=== PATIENT | female | born 1955 | race Caucasian/White ===

== ENCOUNTER → 2017-07-31 08:04 | Outpatient (CLI) | payer OTHER, SELFPAY ==
[2017-07-31 10:35] LABS: Hemoglobin A1c 6.7 % (4.2-6.3)
[2017-07-31 10:43] LABS: ALB/GLOB Ratio 0.8 RATIO (0.9-2.4); AST(SGOT) 23 U/L (15-37); Alanine Aminotransfer ALT/SGPT 23 U/L (13-56); Albumin, Serum 3.5 g/dL (3.2-5.0); Alkaline Phosphatase 88 U/L (45-117); Anion Gap 8 (5-15); BUN 24 mg/dL (7-18); BUN/Creat Ratio 22.6 RATIO (10-20); Calcium,Total 8.4 mg/dL (8.5-10.1); Chloride 104 mmol/L (98-107); Cholesterol 227 mg/dL (200); Creatinine, Serum 1.06 mg/dL (0.55-1.02); EST Glomerular Filtration Rate 56 mL/min (>60); Est Glom Filt Rate - Afr Amer 67 mL/min (>60); Globulin 4.2 g/dL (2.2-4.2); Glucose 97 mg/dL (74-106); High Density Lipoprotein 93 mg/dL; Potassium 3.9 mmol/L (3.5-5.1); Protein, Total 7.7 g/dL (6.4-8.2); Sodium Level 139 mmol/L (136-145); Thyroid Stim Hormone (TSH) 2.82 uIU/mL (0.358-3.74); Triglycerides 54 mg/dL; Very Low Density Lipoprotein 11 mg/dL (5-40)
== END ==
PROVIDERS: Family Provider Internal Medicine; PCP Internal Medicine; Visit Provider Internal Medicine Endocrinology, Diabetes & Metabolism
DX: E10.65 Type 1 diabetes mellitus with hyperglycemia (principal); E78.2 Mixed hyperlipidemia; Z79.899 Other long term (current) drug therapy
CPT/HCPCS: 36415; 80053; 80061; 83036; 84443

== ENCOUNTER → 2017-11-02 07:57 | Outpatient (CLI) | payer OTHER, SELFPAY ==
[2017-11-02 10:16] LABS: Anion Gap 11 (5-15); BUN 20 mg/dL (7-18); BUN/Creat Ratio 19.4 RATIO (10-20); Calcium,Total 8.9 mg/dL (8.5-10.1); Chloride 104 mmol/L (98-107); Creatinine, Serum 1.03 mg/dL (0.55-1.02); EST Glomerular Filtration Rate 57 mL/min (>60); Est Glom Filt Rate - Afr Amer 69 mL/min (>60); Glucose 148 mg/dL (74-106); Potassium 3.9 mmol/L (3.5-5.1); Sodium Level 142 mmol/L (136-145)
[2017-11-02 10:27] LABS: Hemoglobin A1c 6.1 % (4.2-6.3)
[2017-11-02 10:30] LABS: Vitamin D,25 Hydroxy 40.2 ng/mL (29.95-100.01)
[2017-11-02 10:47] LABS: Microalbumin,Random Urine 5.1 mg/L (NO RANGE EST.); Microalbumin:Creatinine Ratio 3.8 mg/g CRE (<30 mg/g CRE)
== END ==
PROVIDERS: Family Provider Internal Medicine; PCP Internal Medicine; Visit Provider Internal Medicine Endocrinology, Diabetes & Metabolism
DX: E10.65 Type 1 diabetes mellitus with hyperglycemia (principal); E03.9 Hypothyroidism, unspecified; Z79.899 Other long term (current) drug therapy
CPT/HCPCS: 36415; 80048; 82043; 82306; 82570; 83036

== ENCOUNTER 2017-11-04 08:35 | Emergency (ER) | payer OTHER, SELFPAY ==
[2017-11-04 08:36] VITALS: BP 91/46; PULSE 78; RESP 18; TEMP 36.4; O2SAT 98; BMI 25.0
--- NOTE | 2017-11-04 08:52 | RAD_ITS ---
STUDY: X-RAY - PELVIS AND RIGHT HIP REASON FOR EXAM: Female, 61 years old. Right hip pain. No known injury. Insulin pump in the pelvic region. TECHNIQUE: Radiological exam, hip, unilateral, with pelvis when performed; 2 or 3 views. COMPARISON: None. FINDINGS: There is a non-specific bowel gas pattern. Normal visualized soft tissue structures. There is diffuse demineralization of the osseous structures. Unremarkable bilateral iliac wings, sacroiliac joints and visualized sacrum. Normal bilateral superior and inferior pubic rami. There are degenerative changes of the pubic symphysis with articular narrowing and sclerosis. Normal visualized femoral head. Normal acetabulum. There is mild articular joint space narrowing of the hip. Heterotopic ossification of the soft tissue superior to the right greater trochanter is seen. There is a small focal calcification of the soft tissue adjacent to the left greater trochanter. Electronic battery pack is seen in the upper left hemithorax. Degenerative changes in the visualized lumbosacral spine. RAD/HIP, UNI W/ Pelvis 2-3 Views IMPRESSION: Osteopenia. Bilateral mild degenerative hip arthrosis. No demonstrated fracture or dislocation. Electronically Signed: Sun Maldonado MD at 9:28 EDT Tel , Service support ,
--- NOTE | 2017-11-04 08:57 | ED.VISSUMM ---
- ER Visit Summary Date of Service: 11/04/17 Chief Complaint: Right hip pain History of Present Illness: The patient is a 61 F who presents with right hip pain that began last night. Patient denies any trauma or injury. Patient states the pain began when she stood up from a seated position. Patient states the pain is a constant aching but sharp at times. Patient states pain is worse with movement and weightbearing. Patient admits to some tingling in her right foot but denies any weakness. Patient states the pain radiates down her right leg. Patient denies any back pain. Patient denies any bowel or bladder changes. Patient denies any saddle anesthesia. Physical Examination: Vital signs are stable. Patient is afebrile. Patient is in no acute distress. Musculoskeletal exam reveals tenderness over the posterior lateral aspect of the right hip. There is no bony crepitance or step-off. There is no obvious deformity noted. There is no tenderness over the sciatic notch. There is some pain with internal and external rotation of the right lower extremity. Pedal pulses are equal bilateral. Sensation was intact to light touch in all digits. The remaining physical exam is within normal limits. Test Results: X-ray of the right hip was obtained. There are some degenerative changes noted. There is some heterotopic ossification superior to the greater trochanter. There is no acute fracture noted. Emergency Department Course and Treatment: Patient was instructed to ice and elevate the right hip. Patient states she will take ibuprofen as needed for pain. Patient states she has a walker at home to help with ambulation. Patient was instructed to follow-up with her primary care physician in 5-7 days. Patient understood and was agreeable with the plan. All questions were answered. Disposition: Discharge home Impression: Right hip strain This note was generated with [employer] dictation software. It may contain incorrect words, spelling, and punctuation that were not noted in review of the chart prior to signing ED Disposition - Plan for ED Patient: Disposition: Home or Assisted Living Chief Complaint: Lower Extremity Injury Diagnosis: Strain of right hip Instructions: ED Sprain Hip Referrals: Michelle Morrison MD [Primary Care Provider] -
--- NOTE | 2017-11-04 09:31 | ED.DCSUM_ITS ---
- ER Visit Summary Date of Service: 11/04/17 Chief Complaint: Right hip pain History of Present Illness: The patient is a 61 F who presents with right hip pain that began last night. Patient denies any trauma or injury. Patient states the pain began when she stood up from a seated position. Patient states the pain is a constant aching but sharp at times. Patient states pain is worse with movement and weightbearing. Patient admits to some tingling in her right foot but denies any weakness. Patient states the pain radiates down her right leg. Patient denies any back pain. Patient denies any bowel or bladder changes. Patient denies any saddle anesthesia. Physical Examination: Vital signs are stable. Patient is afebrile. Patient is in no acute distress. Musculoskeletal exam reveals tenderness over the posterior lateral aspect of the right hip. There is no bony crepitance or step- off. There is no obvious deformity noted. There is no tenderness over the sciatic notch. There is some pain with internal and external rotation of the right lower extremity. Pedal pulses are equal bilateral. Sensation was intact to light touch in all digits. The remaining physical exam is within normal limits. Test Results: X-ray of the right hip was obtained. There are some degenerative changes noted. There is some heterotopic ossification superior to the greater trochanter. There is no acute fracture noted. Emergency Department Course and Treatment: Patient was instructed to ice and elevate the right hip. Patient states she will take ibuprofen as needed for pain. Patient states she has a walker at home to help with ambulation. Patient was instructed to follow-up with her primary care physician in 5-7 days. Patient understood and was agreeable with the plan. All questions were answered. Disposition: Discharge home Impression: Right hip strain This note was generated with [employer] dictation software. It may contain incorrect words, spelling, and punctuation that were not noted in review of the chart prior to signing ED Disposition - Plan for ED Patient: Disposition: Home or Assisted Living Chief Complaint: Lower Extremity Injury Diagnosis: Strain of right hip Instructions: ED Sprain Hip Referrals: Michelle Morrison MD [Primary Care Provider] -
[2017-11-04 09:46] VITALS: BP 110/85; PULSE 83; RESP 16; O2SAT 98
== END 2017-11-04 09:50 | disposition home or self-care (01) ==
PROVIDERS: Emergency Provider Emergency Medicine; Family Provider Internal Medicine; PCP Internal Medicine
DX: M25.551 Pain in right hip (principal); E11.9 Type 2 diabetes mellitus without complications; E03.9 Hypothyroidism, unspecified; Z96.41 Presence of insulin pump (external) (internal); Z79.4 Long term (current) use of insulin; Z79.899 Other long term (current) drug therapy
CPT/HCPCS: 73502; 99282

== ENCOUNTER → 2017-12-27 08:48 | Outpatient (CLI) | payer OTHER, SELFPAY ==
[2017-12-27 10:07] LABS: Hematocrit 39.1 % (37-47); Hemoglobin 12.5 g/dl (12.0-15.0); Mean Corpuscular Hgb 29.3 pg (27.0-32.0); Mean Corpuscular Volume 91.6 fL (81-99); Mean Platelet Vol. 10.5 fl (6.2-12.0); Platelet Count 277 K/mm3 (150-450); RBC Distribution Width CV 13.8 % (11.6-14.6); RBC Distribution Width SD 45.5 fl (35.1-43.9); Red Blood Count 4.27 M/mm3 (4.2-5.4); White Blood Count 3.9 K/mm3 (4.4-11.0)
[2017-12-27 10:09] LABS: Scan Indicated on CBC? Y/N NO
[2017-12-27 10:27] LABS: Hemoglobin A1c 6.4 % (4.2-6.3)
[2017-12-27 10:42] LABS: ALB/GLOB Ratio 0.9 RATIO (0.9-2.4); AST(SGOT) 23 U/L (15-37); Alanine Aminotransfer ALT/SGPT 24 U/L (13-56); Albumin, Serum 3.4 g/dL (3.2-5.0); Alkaline Phosphatase 70 U/L (45-117); Anion Gap 8 (5-15); BUN 20 mg/dL (7-18); Calcium,Total 8.5 mg/dL (8.5-10.1); Chloride 100 mmol/L (98-107); EST Glomerular Filtration Rate 59 mL/min (>60); Est Glom Filt Rate - Afr Amer 72 mL/min (>60); Globulin 3.7 g/dL (2.2-4.2); Glucose 137 mg/dL (74-106); Protein, Total 7.1 g/dL (6.4-8.2); Sodium Level 136 mmol/L (136-145); Thyroid Stim Hormone (TSH) 2.74 uIU/mL (0.358-3.74)
== END ==
PROVIDERS: Family Provider Internal Medicine; PCP Internal Medicine; Referring Provider Internal Medicine Endocrinology, Diabetes & Metabolism; Visit Provider Internal Medicine Endocrinology, Diabetes & Metabolism
DX: E03.9 Hypothyroidism, unspecified (principal); E10.65 Type 1 diabetes mellitus with hyperglycemia; Z79.899 Other long term (current) drug therapy
CPT/HCPCS: 36415; 80053; 83036; 84443; 85027

== ENCOUNTER → 2018-07-31 07:00 | Outpatient (CLI) | payer OTHER, SELFPAY ==
[2018-07-31 10:15] LABS: Absolute Lymphocyte Count 1.29 X10^3/ul (0.83-4.51); Absolute Neutrophil Count 1.5 X10^3/uL (2.0-7.7); Basophil# 0.03 X10^3/uL; Basophil% 0.8 % (0-1); Eosinophil# 0.46 X10^3/uL; Hematocrit 41.7 % (37-47); Hemoglobin 13.4 g/dl (12.0-15.0); Lymphocyte # 1.29 X10^3/ul (4.0); Lymphocyte % 33.7 % (19-41); Mean Corp Hgb Conc 32.1 g/gl (32-36); Mean Corpuscular Hgb 29.1 pg (27.0-32.0); Mean Corpuscular Volume 90.7 fL (81-99); Mean Platelet Vol. 11.6 fl (6.2-12.0); Monocyte# 0.54 X10^3/uL; Monocyte% 14.1 % (0-10); Neutrophil # 1.51 X10^3/uL (2.7-7.7); Neutrophil % 39.4 % (47-70); Platelet Count 256 K/mm3 (150-450); RBC Distribution Width CV 14.1 % (11.6-14.6); RBC Distribution Width SD 46.6 fl (35.1-43.9); White Blood Count 3.8 K/mm3 (4.4-11.0)
[2018-07-31 10:22] LABS: POSITIVE COUNT NO; POSITIVE DIFFERENTIAL NO; POSITIVE MORPHOLOGY NO
[2018-07-31 10:41] LABS: ALB/GLOB Ratio 0.9 RATIO (0.9-2.4); AST(SGOT) 29 U/L (15-37); Alanine Aminotransfer ALT/SGPT 26 U/L (13-56); Albumin, Serum 3.6 g/dL (3.2-5.0); Alkaline Phosphatase 82 U/L (45-117); Anion Gap 4 (5-15); BUN 21 mg/dL (7-18); BUN/Creat Ratio 21.3 RATIO (10-20); Calcium,Total 8.7 mg/dL (8.5-10.1); Chloride 107 mmol/L (98-107); Cholesterol 202 mg/dL (200); Creatinine, Serum 0.98 mg/dL (0.55-1.02); EST Glomerular Filtration Rate 60 mL/min (>60); Est Glom Filt Rate - Afr Amer 73 mL/min (>60); Globulin 3.8 g/dL (2.2-4.2); Glucose 60 mg/dL (74-106); High Density Lipoprotein 94 mg/dL; Potassium 4.8 mmol/L (3.5-5.1); Protein, Total 7.4 g/dL (6.4-8.2); Sodium Level 141 mmol/L (136-145); T4 Free Direct 1.24 ng/dL (0.76-1.46); Thyroid Stim Hormone (TSH) 6.02 uIU/mL (0.358-3.74); Triglycerides 42 mg/dL; Very Low Density Lipoprotein 8 mg/dL (5-40)
[2018-07-31 10:50] LABS: Hemoglobin A1c 6.9 % (4.2-6.3)
== END ==
PROVIDERS: Family Provider Internal Medicine; PCP Internal Medicine; Referring Provider Internal Medicine Endocrinology, Diabetes & Metabolism; Visit Provider Internal Medicine Endocrinology, Diabetes & Metabolism
DX: E10.65 Type 1 diabetes mellitus with hyperglycemia (principal); D72.819 Decreased white blood cell count, unspecified
CPT/HCPCS: 36415; 80053; 80061; 83036; 84439; 84443; 85025

== ENCOUNTER → 2018-10-11 | Outpatient (CLI) | payer OTHER, SELFPAY ==
[2018-10-11 09:53] LABS: Absolute Lymphocyte Count 1.05 X10^3/uL (0.83-4.51); Absolute Neutrophil Count 2.4 X10^3/uL (2.0-7.7); Basophil# 0.06 X10^3/uL; Basophil% 1.2 % (0-1); Eosinophil# 0.87 X10^3/uL; Eosinophils% 17.8 % (0-5); Hematocrit 41.2 % (37-47); Hemoglobin 13.3 g/dL (12.0-15.0); Lymphocyte # 1.05 X10^3/ul (4.0); Lymphocyte % 21.5 % (19-41); Mean Corp Hgb Conc 32.3 g/dL (32-36); Mean Corpuscular Hgb 29.6 pg (27.0-32.0); Mean Corpuscular Volume 91.8 fL (81-99); Monocyte% 10.2 % (0-10); NRBC Flagged by Analyzer 0 % (0-5); Neutrophil % 49.1 % (47-70); Platelet Count 277 K/mm3 (150-450); RBC Distribution Width CV 13.8 % (11.6-14.6); RBC Distribution Width SD 47.1 fl (35.1-43.9); Red Blood Count 4.49 M/mm3 (4.2-5.4); White Blood Count 4.9 K/mm3 (4.4-11.0)
[2018-10-11 10:14] LABS: Microalbumin,Random Urine < 5.0 mg/L (NO RANGE EST.); Protein, Urine (Random) 8.8 mg/dL (<11.9); Protein:Creat Ratio 76 mg/g CRE (0-200)
[2018-10-11 10:21] LABS: Hemoglobin A1c 6.7 % (4.2-6.3)
[2018-10-11 10:22] LABS: Vitamin D,25 Hydroxy 44.6 ng/mL (29.95-100.01)
[2018-10-11 10:37] LABS: Anion Gap 7 (5-15); BUN 25 mg/dL (7-18); BUN/Creat Ratio 24.3 RATIO (10-20); Calcium,Total 8.7 mg/dL (8.5-10.1); Chloride 105 mmol/L (98-107); Creatinine, Serum 1.03 mg/dL (0.55-1.02); EST Glomerular Filtration Rate 57 mL/min (>60); Est Glom Filt Rate - Afr Amer 69 mL/min (>60); Glucose 109 mg/dL (74-106); Potassium 4.3 mmol/L (3.5-5.1); Sodium Level 139 mmol/L (136-145); T4 Free Direct 1.39 ng/dL (0.76-1.46); Thyroid Stim Hormone (TSH) 2.61 uIU/mL (0.358-3.74)
== END | disposition home or self-care (01) ==
LOC: MTLAB 08:12
PROVIDERS: Family Provider Internal Medicine; PCP Internal Medicine; Referring Provider Internal Medicine Endocrinology, Diabetes & Metabolism; Visit Provider Internal Medicine Endocrinology, Diabetes & Metabolism
DX: E03.9 Hypothyroidism, unspecified (principal); E10.65 Type 1 diabetes mellitus with hyperglycemia; E55.9 Vitamin D deficiency, unspecified; Z79.899 Other long term (current) drug therapy
CPT/HCPCS: 36415; 80048; 82043; 82306; 82570; 83036; 84156; 84439; 84443; 85025

== ENCOUNTER → 2018-10-17 | Outpatient (CLI) | payer OTHER, SELFPAY ==
[2018-10-17 10:25] LABS: Erythrocyte Sedimentation Rate 6 mm/hr (0-30)
[2018-10-17 10:35] LABS: CRP < 2.90 mg/L (0.0-3.0); Rheumatoid Factor < 10.0 IU/mL (<15)
[2018-10-18 15:11] LABS: ANTINUCLEAR ANTIBODIES DIRECT Positive (Negative)
[2018-10-20 17:09] LABS: CCP IgG Antibodies 9 units (0-19)
== END | disposition home or self-care (01) ==
LOC: MTLAB 07:33
PROVIDERS: Family Provider Family Medicine; PCP Family Medicine; Referring Provider Family Medicine; Visit Provider Family Medicine
DX: M13.0 Polyarthritis, unspecified (principal)
CPT/HCPCS: 36415; 85652; 86038; 86140; 86200; 86431

== ENCOUNTER → 2018-12-13 | Outpatient (CLI) | payer MEDICARE, SELFPAY ==
[2018-12-13 10:35] LABS: Glucose 111 mg/dL (74-106)
[2018-12-15 10:32] LABS: C-Peptide < 0.1 ng/mL (1.1-4.4)
== END | disposition home or self-care (01) ==
LOC: MTLAB 07:27
PROVIDERS: Family Provider Family Medicine; PCP Family Medicine; Referring Provider Internal Medicine Endocrinology, Diabetes & Metabolism; Visit Provider Internal Medicine Endocrinology, Diabetes & Metabolism
DX: E10.65 Type 1 diabetes mellitus with hyperglycemia (principal)
CPT/HCPCS: 36415; 82947; 84681

== ENCOUNTER → 2018-12-20 | Outpatient (CLI) | payer MEDICARE, SELFPAY ==
[2018-12-20 10:03] LABS: Hematocrit 41.5 % (37-47); Hemoglobin 13.3 g/dL (12.0-15.0); Mean Corpuscular Volume 93.7 fL (81-99); Mean Platelet Vol. 11.3 fl (6.2-12.0); Platelet Count 277 K/mm3 (150-450); RBC Distribution Width CV 13.7 % (11.6-14.6); RBC Distribution Width SD 46.5 fl (35.1-43.9); Red Blood Count 4.43 M/mm3 (4.2-5.4); White Blood Count 5.7 K/mm3 (4.4-11.0)
[2018-12-20 10:11] LABS: ALB/GLOB Ratio 0.9 RATIO (0.9-2.4); AST(SGOT) 26 U/L (15-37); Alanine Aminotransfer ALT/SGPT 25 U/L (13-56); Albumin, Serum 3.5 g/dL (3.2-5.0); Alkaline Phosphatase 83 U/L (45-117); Anion Gap 9 (5-15); BUN 29 mg/dL (7-18); BUN/Creat Ratio 29.5 RATIO (10-20); Calcium,Total 8.6 mg/dL (8.5-10.1); Chloride 105 mmol/L (98-107); Creatinine, Serum 0.98 mg/dL (0.55-1.02); EST Glomerular Filtration Rate 60 mL/min (>60); Est Glom Filt Rate - Afr Amer 73 mL/min (>60); Globulin 3.8 g/dL (2.2-4.2); Glucose 116 mg/dL (74-106); Potassium 4.4 mmol/L (3.5-5.1); Protein, Total 7.3 g/dL (6.4-8.2); Sodium Level 141 mmol/L (136-145)
[2018-12-20 10:20] LABS: Hemoglobin A1c 6.2 % (4.2-6.3)
== END | disposition home or self-care (01) ==
LOC: MTLAB 08:18
PROVIDERS: Family Provider Family Medicine; PCP Family Medicine; Referring Provider Internal Medicine Endocrinology, Diabetes & Metabolism; Visit Provider Internal Medicine Endocrinology, Diabetes & Metabolism
DX: E78.2 Mixed hyperlipidemia (principal); E11.65 Type 2 diabetes mellitus with hyperglycemia; I10 Essential (primary) hypertension; D72.819 Decreased white blood cell count, unspecified; Z79.899 Other long term (current) drug therapy
CPT/HCPCS: 36415; 80053; 83036; 85027

== ENCOUNTER → 2019-08-07 | Outpatient (CLI) | payer MEDICARE, OTHER, SELFPAY ==
[2019-08-07 10:08] LABS: Hemoglobin A1c 6.9 % (4.2-6.3)
[2019-08-07 10:16] LABS: ALB/GLOB Ratio 0.9 RATIO (0.9-2.4); AST(SGOT) 23 U/L (15-37); Alanine Aminotransfer ALT/SGPT 26 U/L (13-56); Albumin, Serum 3.7 g/dL (3.2-5.0); Alkaline Phosphatase 85 U/L (45-117); Anion Gap 9 (5-15); BUN 24 mg/dL (7-18); BUN/Creat Ratio 24.7 RATIO (10-20); Chloride 104 mmol/L (98-107); Cholesterol 238 mg/dL (200); Creatinine, Serum 0.97 mg/dL (0.55-1.02); EST Glomerular Filtration Rate 61 mL/min (>60); Est Glom Filt Rate - Afr Amer 74 mL/min (>60); Globulin 4.1 g/dL (2.2-4.2); Glucose 92 mg/dL (74-106); High Density Lipoprotein 112 mg/dL; Potassium 4.2 mmol/L (3.5-5.1); Protein, Total 7.8 g/dL (6.4-8.2); Sodium Level 139 mmol/L (136-145); Thyroid Stim Hormone (TSH) 2.97 uIU/mL (0.358-3.74); Triglycerides 39 mg/dL; Very Low Density Lipoprotein 8 mg/dL (5-40)
== END | disposition home or self-care (01) ==
LOC: MTLAB 07:14
PROVIDERS: PCP Family Medicine; Referring Provider Internal Medicine Endocrinology, Diabetes & Metabolism; Visit Provider Internal Medicine Endocrinology, Diabetes & Metabolism
DX: E10.65 Type 1 diabetes mellitus with hyperglycemia (principal); E10.42 Type 1 diabetes mellitus with diabetic polyneuropathy; Z79.899 Other long term (current) drug therapy
CPT/HCPCS: 36415; 80053; 80061; 83036; 84443

== ENCOUNTER → 2019-11-06 | Outpatient (CLI) | payer MEDICARE, OTHER, SELFPAY ==
[2019-09-07 08:22] VITALS: BMI 25.0
[2019-11-06 10:46] LABS: ALB/GLOB Ratio 0.9 RATIO (0.9-2.4); AST(SGOT) 23 U/L (15-37); Alanine Aminotransfer ALT/SGPT 24 U/L (13-56); Albumin, Serum 3.8 g/dL (3.2-5.0); Alkaline Phosphatase 91 U/L (45-117); Anion Gap 4 (5-15); BUN 22 mg/dL (7-18); Calcium,Total 9.4 mg/dL (8.5-10.1); Chloride 105 mmol/L (98-107); Creatinine, Serum 1.05 mg/dL (0.55-1.02); EST Glomerular Filtration Rate 56 mL/min (>60); Est Glom Filt Rate - Afr Amer 68 mL/min (>60); Globulin 4.1 g/dL (2.2-4.2); Glucose 129 mg/dL (74-106); Protein, Total 7.9 g/dL (6.4-8.2); Sodium Level 138 mmol/L (136-145)
[2019-11-06 10:57] LABS: Vitamin B12 1525 pg/mL (211-911)
[2019-11-06 10:58] LABS: Hemoglobin A1c 6.1 % (3.8-5.6)
[2019-11-06 12:37] LABS: Microalbumin,Random Urine < 5.0 mg/L (NO RANGE EST.)
== END | disposition home or self-care (01) ==
LOC: MTLAB 07:53
PROVIDERS: PCP Family Medicine; Referring Provider Internal Medicine Endocrinology, Diabetes & Metabolism; Visit Provider Internal Medicine Endocrinology, Diabetes & Metabolism
DX: E10.65 Type 1 diabetes mellitus with hyperglycemia (principal); E10.42 Type 1 diabetes mellitus with diabetic polyneuropathy; Z79.899 Other long term (current) drug therapy
CPT/HCPCS: 36415; 80053; 82043; 82570; 82607; 83036

== ENCOUNTER → 2019-12-09 | Outpatient (CLI) | payer MEDICARE, OTHER, SELFPAY ==
[2019-09-07 08:22] VITALS: BMI 25.0
--- NOTE | 2019-12-09 08:44 | BD_ITS ---
STUDY: DUAL ENERGY X-RAY ABSORPTIOMETRY / DXA REASON FOR EXAM: Female, 63 years old. [employer] -- TYPE 1 DIABETIC- ON MEDS -- TAKES THYROID MEDICATION -- TAKES MULTIVITAMIN -- DOES MODERATE AMOUNT OF EXERCISE -- HX OF LEFT LEG FX -- NO BRITTNEY TECHNIQUE: Bone Mineral Density (BMD) measurements of lumbar spine and bilateral hips were obtained. COMPARISON: None. FINDINGS: Lumbar Spine (L1-L4): g/cm2 (0.793) / T-score (-3.2) / Z-score (-1.6) Findings are suggestive of osteoporosis with a high fracture risk. Left Femur Total: g/cm2 (0.639) / T-score (-2.9) / Z-score (-1.7) Left Femoral Neck: g/cm2 (0.653) / T-score (-2.8) / Z-score (-1.3) Right Femur Total: g/cm2 (0.667) / T-score (-2.7) / Z-score (-1.5) Right Femoral Neck: g/cm2 (0.698) / T-score (-2.4) / Z-score (-1.0) BD/Dexa Bone Density Study IMPRESSION: The patient is considered osteoporotic as outlined below according to World Samuel Organization (WHO) criteria with a high fracture risk. Reference Information: The T-score is the number of standard deviations above or below the standard which is normal for young adults at their peak bone mineral density. The World Health Organization (WHO) interprets the T-scores as follows: Above -1 Normal bone density Between -1 and -2.5 Osteopenia Equal to / or below -2.5 Osteoporosis As a practical clinical guideline, osteopenia may be graded as follows: Mild -1 through -1.5 Moderate -1.6 through -2.0 Severe -2.1 through -2.4 The Z-score is the number of standard deviations above or below age-matched controls. A Z-score of less than -1.5 would be considered abnormal. References: 1. NIH Osteoporosis and Related Bone Diseases http://www.osteo.org 2. International Society for Clinical Densitometry http://www.iscd.org 3. National Osteoporosis Foundation http://www.nof.org Electronically Signed: Raza Stephens, at 11:07 EDT , Service support ,
== END | disposition home or self-care (01) ==
LOC: OPBD 08:34
PROVIDERS: PCP Family Medicine; Referring Provider Family Medicine; Visit Provider Family Medicine
DX: Z78.0 Asymptomatic menopausal state (principal); E10.9 Type 1 diabetes mellitus without complications
CPT/HCPCS: 77080

== ENCOUNTER → 2019-12-23 | Outpatient (CLI) | payer MEDICARE, OTHER, SELFPAY ==
[2019-09-07 08:22] VITALS: BMI 25.0
[2019-12-23 16:06] LABS: Vitamin D,25 Hydroxy 52.8 ng/mL
[2019-12-24 10:04] LABS: PTHIN 69.1 pg/mL (18.4-80.1)
== END | disposition home or self-care (01) ==
PROVIDERS: PCP Family Medicine; Referring Provider Internal Medicine Endocrinology, Diabetes & Metabolism; Visit Provider Internal Medicine Endocrinology, Diabetes & Metabolism
DX: M81.0 Age-related osteoporosis without current pathological fracture (principal)
CPT/HCPCS: 36415; 82306; 83970

== ENCOUNTER → 2019-12-26 | Outpatient (CLI) | payer MEDICARE, OTHER, SELFPAY ==
[2019-09-07 08:22] VITALS: BMI 25.0
[2019-12-28 07:27] LABS: C-Peptide < 0.1 ng/mL (1.1-4.4)
== END | disposition home or self-care (01) ==
LOC: MTLAB 08:44
PROVIDERS: PCP Family Medicine; Referring Provider Internal Medicine Endocrinology, Diabetes & Metabolism; Visit Provider Internal Medicine Endocrinology, Diabetes & Metabolism
DX: M81.0 Age-related osteoporosis without current pathological fracture (principal)
CPT/HCPCS: 36415; 84681

== ENCOUNTER → 2020-08-06 08:09 | Outpatient (CLI) | payer MEDICARE, OTHER, SELFPAY ==
[2019-09-07 08:22] VITALS: BMI 25.0
[2020-08-06 10:48] LABS: Hemoglobin A1c 5.9 % (3.8-5.6)
[2020-08-06 10:56] LABS: ALB/GLOB Ratio 0.9 RATIO (0.9-2.4); AST(SGOT) 26 U/L (15-37); Alanine Aminotransfer ALT/SGPT 26 U/L (13-56); Albumin, Serum 3.7 g/dL (3.2-5.0); Alkaline Phosphatase 53 U/L (45-117); Anion Gap 6 (5-15); BUN 23 mg/dL (7-18); BUN/Creat Ratio 23.7 RATIO (10-20); Calcium,Total 8.8 mg/dL (8.5-10.1); Chloride 103 mmol/L (98-107); Cholesterol 230 mg/dL (200); Creatinine, Serum 0.97 mg/dL (0.55-1.02); EST Glomerular Filtration Rate 61 mL/min (>60); Est Glom Filt Rate - Afr Amer 74 mL/min (>60); Globulin 3.9 g/dL (2.2-4.2); Glucose 129 mg/dL (74-106); High Density Lipoprotein 107 mg/dL; Protein, Total 7.6 g/dL (6.4-8.2); Sodium Level 138 mmol/L (136-145); T4 Free Direct 1.42 ng/dL (0.76-1.46); Triglycerides 40 mg/dL; Very Low Density Lipoprotein 8 mg/dL (5-40)
[2020-08-06 11:38] LABS: 24HR UR TOTAL VOLUME 3000 ml; Calcium Urine pH Range 2
[2020-08-06 13:10] LABS: PTHIN 61.9 pg/mL (18.4-80.1)
[2020-08-07 08:04] LABS: Vitamin B12 752 pg/mL (211-911); Vitamin D,25 Hydroxy 47.3 ng/mL
== END ==
PROVIDERS: PCP Family Medicine; Referring Provider Internal Medicine Endocrinology, Diabetes & Metabolism; Visit Provider Internal Medicine Endocrinology, Diabetes & Metabolism
DX: E10.65 Type 1 diabetes mellitus with hyperglycemia (principal); M81.0 Age-related osteoporosis without current pathological fracture; Z79.899 Other long term (current) drug therapy
CPT/HCPCS: 36415; 80053; 80061; 82306; 82340; 82575; 82607; 83036; 83970; 84439; 84443

== ENCOUNTER → 2020-08-09 09:01 | Outpatient (CLI) | payer MEDICARE, OTHER, SELFPAY ==
[2019-09-07 08:22] VITALS: BMI 25.0
[2020-08-09 10:43] LABS: (24 HR) Urine Calcium 246.5 mg/24 HR (42.0-353.0); 24HR UR TOTAL VOLUME 2900 ml; Calcium Urine pH Range 2; Urine Calcium (Random) 8.5 (Not Estab.)
[2020-08-09 10:44] LABS: 24HR. Urine Creatinine 1.08 g/24 HR (0.70-1.90)
== END ==
PROVIDERS: PCP Family Medicine; Referring Provider Internal Medicine Endocrinology, Diabetes & Metabolism; Visit Provider Internal Medicine Endocrinology, Diabetes & Metabolism
DX: E10.65 Type 1 diabetes mellitus with hyperglycemia (principal); M81.0 Age-related osteoporosis without current pathological fracture; Z79.899 Other long term (current) drug therapy
CPT/HCPCS: 81050; 82340; 82570

== ENCOUNTER → 2020-11-11 07:50 | Outpatient (CLI) | payer MEDICARE, OTHER, SELFPAY ==
[2020-11-11 11:16] LABS: Albumin, Serum 3.4 g/dL (3.2-5.0); BUN 20 mg/dL (7-18); BUN/Creat Ratio 21.4 RATIO (10-20); Calcium,Total 8.6 mg/dL (8.5-10.1); Chloride 104 mmol/L (98-107); Creatinine, Serum 0.94 mg/dL (0.55-1.02); EST Glomerular Filtration Rate 64 mL/min (>60); Est Glom Filt Rate - Afr Amer 77 mL/min (>60); Glucose 137 mg/dL (74-106); Phosphorus 3.2 mg/dL (2.5-4.9); Potassium 3.9 mmol/L (3.5-5.1); Sodium Level 138 mmol/L (136-145)
[2020-11-11 11:21] LABS: PTHIN 67.8 pg/mL (18.4-80.1)
[2020-11-11 11:29] LABS: Microalbumin,Random Urine < 5.0 mg/L (NO RANGE EST.)
== END ==
PROVIDERS: PCP Family Medicine; Referring Provider Internal Medicine Endocrinology, Diabetes & Metabolism; Visit Provider Internal Medicine Endocrinology, Diabetes & Metabolism
DX: E55.9 Vitamin D deficiency, unspecified (principal); M81.0 Age-related osteoporosis without current pathological fracture; E10.65 Type 1 diabetes mellitus with hyperglycemia
CPT/HCPCS: 36415; 80069; 82043; 82570; 83970

== ENCOUNTER → 2021-08-03 | Outpatient (CLI) | payer MEDICARE, OTHER, SELFPAY ==
[2021-08-03 10:23] LABS: PTHIN 61.9 pg/mL (18.4-80.1)
[2021-08-03 10:26] LABS: Vitamin D,25 Hydroxy 51.6 ng/mL
[2021-08-03 10:35] LABS: AST(SGOT) 27 U/L (15-37); Alanine Aminotransfer ALT/SGPT 30 U/L (13-56); Albumin, Serum 3.6 g/dL (3.2-5.0); Alkaline Phosphatase 42 U/L (45-117); Anion Gap 8 (5-15); BUN 20 mg/dL (7-18); BUN/Creat Ratio 22.7 RATIO (10-20); Calcium,Total 8.6 mg/dL (8.5-10.1); Chloride 103 mmol/L (98-107); Creatinine, Serum 0.88 mg/dL (0.55-1.02); EST Glomerular Filtration Rate 68 mL/min (>60); Est Glom Filt Rate - Afr Amer 82 mL/min (>60); Globulin 3.5 g/dL (2.2-4.2); Glucose 177 mg/dL (74-106); Protein, Total 7.1 g/dL (6.4-8.2); Sodium Level 133 mmol/L (136-145)
[2021-08-03 12:27] LABS: (24 HR) Urine Calcium 153.4 mg/24 HR (42.0-353.0); 24HR UR TOTAL VOLUME 2600 ml; Calcium Urine pH Range 2; Urine Calcium (Random) 5.9 (Not Estab.)
== END | disposition home or self-care (01) ==
PROVIDERS: PCP Family Medicine; Referring Provider Internal Medicine Endocrinology, Diabetes & Metabolism; Visit Provider Internal Medicine Endocrinology, Diabetes & Metabolism
DX: E10.65 Type 1 diabetes mellitus with hyperglycemia (principal); M81.0 Age-related osteoporosis without current pathological fracture; Z79.899 Other long term (current) drug therapy
CPT/HCPCS: 36415; 80053; 81050; 82306; 82340; 82570; 83036; 83970

== ENCOUNTER → 2021-10-21 | Outpatient (CLI) | payer MEDICARE, OTHER, SELFPAY ==
--- NOTE | 2021-10-21 08:52 | RAD_ITS ---
STUDY: X-RAY - LEFT KNEE REASON FOR EXAM: Left knee pain. TECHNIQUE: 4 view(s) of the knee. COMPARISON: None. FINDINGS: Normal visualized distal femur. Normal visualized proximal tibia and fibula. Normal proximal tibiofibular articulation. There is joint space loss of the medial femorotibial compartment. Normal lateral femorotibial compartment. There is mild joint space narrowing of the lateral aspect of the patellofemoral articulation. The soft tissue structures are unremarkable. RAD/Knee 4 or More Views IMPRESSION: Arthrosis of the medial femorotibial and patellofemoral compartments. Electronically Signed: Vahe Fuentes MD at 13:16 EDT ,
== END | disposition home or self-care (01) ==
LOC: MTRAD 08:51
PROVIDERS: PCP Family Medicine; Referring Provider Family Medicine; Visit Provider Family Medicine
DX: M25.562 Pain in left knee (principal)
CPT/HCPCS: 73564

== ENCOUNTER → 2021-11-03 | Outpatient (CLI) | payer MEDICARE, OTHER, SELFPAY ==
[2021-11-03 10:28] LABS: Vitamin B12 545 pg/mL (211-911)
[2021-11-03 10:31] LABS: Hemoglobin A1c 6.5 % (3.8-5.6)
[2021-11-03 10:34] LABS: Anion Gap 5 (5-15); BUN 13 mg/dL (7-18); BUN/Creat Ratio 12.5 RATIO (10-20); Calcium,Total 8.6 mg/dL (8.5-10.1); Chloride 102 mmol/L (98-107); Cholesterol 221 mg/dL (200); Creatinine, Serum 1.04 mg/dL (0.55-1.02); EST Glomerular Filtration Rate 56 mL/min (>60); Est Glom Filt Rate - Afr Amer 68 mL/min (>60); Glucose 173 mg/dL (74-106); High Density Lipoprotein 79 mg/dL; Potassium 4.3 mmol/L (3.5-5.1); Sodium Level 135 mmol/L (136-145); T4 Free Direct 1.42 ng/dL (0.76-1.46); Thyroid Stim Hormone (TSH) 1.43 uIU/mL (0.358-3.74); Triglycerides 80 mg/dL; Very Low Density Lipoprotein 16 mg/dL (5-40)
[2021-11-03 10:41] LABS: Microalbumin,Random Urine < 5.0 mg/L (NO RANGE EST.)
== END | disposition home or self-care (01) ==
LOC: MTLAB 07:57
PROVIDERS: PCP Family Medicine; Referring Provider Internal Medicine Endocrinology, Diabetes & Metabolism; Visit Provider Internal Medicine Endocrinology, Diabetes & Metabolism
DX: E10.65 Type 1 diabetes mellitus with hyperglycemia (principal); E03.9 Hypothyroidism, unspecified; E55.9 Vitamin D deficiency, unspecified; M81.0 Age-related osteoporosis without current pathological fracture; Z79.899 Other long term (current) drug therapy
CPT/HCPCS: 80048; 80061; 82043; 82570; 82607; 83036; 84439; 84443

== ENCOUNTER → 2021-12-13 | Outpatient (CLI) | payer MEDICARE, OTHER, SELFPAY ==
--- NOTE | 2021-12-13 08:20 | BD_ITS ---
STUDY: DUAL ENERGY X-RAY ABSORPTIOMETRY / DXA REASON FOR EXAM: Female, 66 years old. M810. The patient is postmenopausal. TECHNIQUE: Bone Mineral Density (BMD) measurements of lumbar spine and bilateral hips were obtained. COMPARISON: Comparison is made with prior study 12/09/2019. FINDINGS: Lumbar Spine (L1-L4): g/cm2 (0.752) / T-score (-2.7) / Z-score (-0.7) Findings are suggestive of osteoporosis with a high fracture risk. Left Femur Total: g/cm2 (0.669) / T-score (-2.2) / Z-score (-0.9) Left Femoral Neck: g/cm2 (0.577) / T-score (-2.4) / Z-score (-0.8) Right Femur Total: g/cm2 (0.703) / T-score (-2.0) / Z-score (-0.6) Right Femoral Neck: g/cm2 (0.601) / T-score (-2.2) / Z-score (-0.6) The T-Scores on the most recent prior examination were: Lumbar Spine (L1-L4): There has been improvement of bone density since the previous examination. Left Femur Total: which represents an improvement of 14.6%. Right Femur Total: which represents an improvement of 15.1%. BD/Dexa Bone Density Study IMPRESSION: The patient is considered osteoporotic as outlined below according to World Samuel Organization (WHO) criteria with a high fracture risk. There has been improvement of bone density since the previous examination. Reference Information: The T-score is the number of standard deviations above or below the standard which is normal for young adults at their peak bone mineral density. The World Health Organization (WHO) interprets the T-scores as follows: Above -1 Normal bone density Between -1 and -2.5 Osteopenia Equal to / or below -2.5 Osteoporosis As a practical clinical guideline, osteopenia may be graded as follows: Mild -1 through -1.5 Moderate -1.6 through -2.0 Severe -2.1 through -2.4 The Z-score is the number of standard deviations above or below age-matched controls. A Z-score of less than -1.5 would be considered abnormal. References: 1. NIH Osteoporosis and Related Bone Diseases www osteo.org 2. International Society for Clinical Densitometry www iscd.org 3. National Osteoporosis Foundation www nof.org Electronically Signed: Raza Stephens MD at 12:43 EDT ,
== END | disposition home or self-care (01) ==
LOC: OPBD 08:07
PROVIDERS: PCP Family Medicine; Visit Provider Internal Medicine Endocrinology, Diabetes & Metabolism
DX: M81.0 Age-related osteoporosis without current pathological fracture (principal)
CPT/HCPCS: 77080

== ENCOUNTER → 2022-07-28 | Outpatient (CLI) | payer MEDICARE, OTHER, SELFPAY ==
[2022-07-28 10:40] LABS: Vitamin B12 1486 pg/mL (211-911); Vitamin D,25 Hydroxy 55.6 ng/mL
[2022-07-28 10:42] LABS: Hemoglobin A1c 5.9 % (3.8-5.6)
[2022-07-28 10:43] LABS: ALB/GLOB Ratio 0.9 RATIO (0.9-2.4); AST(SGOT) 28 U/L (15-37); Alanine Aminotransfer ALT/SGPT 30 U/L (13-56); Albumin, Serum 3.8 g/dL (3.2-5.0); Alkaline Phosphatase 52 U/L (45-117); Anion Gap 9 (5-15); BUN 21 mg/dL (7-18); BUN/Creat Ratio 22.2 RATIO (10-20); Calcium,Total 8.9 mg/dL (8.5-10.1); Chloride 102 mmol/L (98-107); Creatinine, Serum 0.94 mg/dL (0.55-1.02); EST Glomerular Filtration Rate 62 mL/min (>60); Est Glom Filt Rate - Afr Amer 76 mL/min (>60); Globulin 4.1 g/dL (2.2-4.2); Glucose 107 mg/dL (74-106); Potassium 3.7 mmol/L (3.5-5.1); Protein, Total 7.9 g/dL (6.4-8.2); Sodium Level 138 mmol/L (136-145); T4 Free Direct 1.49 ng/dL (0.76-1.46); Thyroid Stim Hormone (TSH) 0.88 uIU/mL (0.358-3.74)
[2022-07-28 10:53] LABS: PTHIN 64.8 pg/mL (18.4-80.1)
== END | disposition home or self-care (01) ==
LOC: MTLAB 07:01
PROVIDERS: PCP Family Medicine; Referring Provider Internal Medicine Endocrinology, Diabetes & Metabolism; Visit Provider Internal Medicine Endocrinology, Diabetes & Metabolism
DX: E10.65 Type 1 diabetes mellitus with hyperglycemia (principal); E03.9 Hypothyroidism, unspecified; E55.9 Vitamin D deficiency, unspecified; Z79.899 Other long term (current) drug therapy
CPT/HCPCS: 36415; 80053; 82306; 82607; 83036; 83970; 84439; 84443; 84681

== ENCOUNTER → 2022-10-04 | Outpatient (CLI) | payer MEDICARE, OTHER, SELFPAY ==
[2022-10-04 10:26] LABS: Glucose 117 mg/dL (74-106)
[2022-10-05 12:09] LABS: C-Peptide < 0.1 ng/mL (1.1-4.4)
== END | disposition home or self-care (01) ==
PROVIDERS: PCP Family Medicine; Referring Provider Internal Medicine Endocrinology, Diabetes & Metabolism; Visit Provider Internal Medicine Endocrinology, Diabetes & Metabolism
DX: E10.65 Type 1 diabetes mellitus with hyperglycemia (principal)
CPT/HCPCS: 36415; 82947; 84681

== ENCOUNTER → 2022-10-26 | Outpatient (CLI) | payer MEDICARE, OTHER, SELFPAY ==
[2022-10-26 10:24] LABS: Microalbumin,Random Urine 6.6 mg/L (NO RANGE EST.); Microalbumin:Creatinine Ratio 6.6 mg/g CRE (<30 mg/g CRE)
[2022-10-26 10:28] LABS: PTHIN 69.9 pg/mL (18.4-80.1)
[2022-10-26 10:30] LABS: Vitamin D,25 Hydroxy 47.5 ng/mL
[2022-10-26 10:41] LABS: Hemoglobin A1c 6.1 % (3.8-5.6)
[2022-10-26 10:55] LABS: Anion Gap 5 (5-15); BUN 17 mg/dL (7-18); BUN/Creat Ratio 19.3 RATIO (10-20); Calcium,Total 8.7 mg/dL (8.5-10.1); Chloride 106 mmol/L (98-107); Cholesterol 208 mg/dL (200); Creatinine, Serum 0.88 mg/dL (0.55-1.02); EST Glomerular Filtration Rate 68 mL/min (>60); Est Glom Filt Rate - Afr Amer 82 mL/min (>60); Glucose 103 mg/dL (74-106); High Density Lipoprotein 97 mg/dL; Potassium 4.1 mmol/L (3.5-5.1); Sodium Level 140 mmol/L (136-145); Thyroid Stim Hormone (TSH) 2.26 uIU/mL (0.358-3.74); Triglycerides 57 mg/dL; Very Low Density Lipoprotein 11 mg/dL (5-40)
== END | disposition home or self-care (01) ==
LOC: MTLAB 07:16
PROVIDERS: PCP Family Medicine; Visit Provider Internal Medicine Endocrinology, Diabetes & Metabolism
DX: E10.65 Type 1 diabetes mellitus with hyperglycemia (principal); E55.9 Vitamin D deficiency, unspecified
CPT/HCPCS: 36415; 80048; 80061; 82043; 82306; 82570; 83036; 83970; 84443

== ENCOUNTER → 2023-08-21 | Outpatient (CLI) | payer MEDICARE, OTHER, SELFPAY ==
[2023-08-21 10:44] LABS: Hemoglobin A1c 5.8 % (3.8-5.6)
[2023-08-21 10:54] LABS: ALB/GLOB Ratio 0.8 RATIO (0.9-2.4); AST(SGOT) 25 U/L (15-37); Alanine Aminotransfer ALT/SGPT 21 U/L (13-56); Albumin, Serum 3.2 g/dL (3.2-5.0); Alkaline Phosphatase 51 U/L (45-117); Anion Gap 8 (5-15); BUN 25 mg/dL (7-18); BUN/Creat Ratio 24.5 RATIO (10-20); Chloride 103 mmol/L (98-107); Creatinine, Serum 1.02 mg/dL (0.55-1.02); EST Glomerular Filtration Rate 57 mL/min (>60); Est Glom Filt Rate - Afr Amer 69 mL/min (>60); Globulin 3.9 g/dL (2.2-4.2); Glucose 113 mg/dL (74-106); Magnesium 2.4 mg/dL (1.6-2.6); Potassium 4.3 mmol/L (3.5-5.1); Protein, Total 7.1 g/dL (6.4-8.2); Sodium Level 137 mmol/L (136-145); Thyroid Stim Hormone (TSH) 1.79 uIU/mL (0.358-3.74)
[2023-08-21 12:02] LABS: PTHIN 48.4 pg/mL (18.4-80.1)
[2023-08-21 12:23] LABS: Vitamin D,25 Hydroxy 78.7 ng/mL
== END | disposition home or self-care (01) ==
LOC: MTLAB 07:19
PROVIDERS: PCP Family Medicine; Referring Provider Internal Medicine Endocrinology, Diabetes & Metabolism; Visit Provider Internal Medicine Endocrinology, Diabetes & Metabolism
DX: E10.65 Type 1 diabetes mellitus with hyperglycemia (principal); E03.9 Hypothyroidism, unspecified; M81.0 Age-related osteoporosis without current pathological fracture; Z79.899 Other long term (current) drug therapy
CPT/HCPCS: 36415; 80053; 82306; 83036; 83735; 83970; 84443

== ENCOUNTER → 2023-12-25 | Outpatient (CLI) | payer MEDICARE, OTHER, SELFPAY ==
--- NOTE | 2023-12-25 08:29 | BD_ITS ---
STUDY: DUAL ENERGY X-RAY ABSORPTIOMETRY / DXA REASON FOR EXAM: Female, 68 years old. M810 TECHNIQUE: Bone Mineral Density (BMD) measurements of lumbar spine and bilateral hips as well as a left forearm were obtained. COMPARISON: Comparison is made with prior study December 13, 2021. FINDINGS: Lumbar Spine (L1-L4): g/cm2 (0.751) / T-score (-2.4) / Z-score (-0.4) Findings are suggestive of osteopenia with a high fracture risk. Left Femur Total: g/cm2 (0.704) / T-score (-2.0) / Z-score (-0.5) Left Femoral Neck: g/cm2 (0.590) / T-score (-2.3) / Z-score (-0.5) Right Femur Total: g/cm2 (0.710) / T-score (-1.9) / Z-score (-0.4) Right Femoral Neck: g/cm2 (0.599) / T-score (-2.3) / Z-score (-0.5) Left Forearm: g/cm2 (0.486) / T-score (-1.7) / Z-score (0.3) The T-Scores on the most recent prior examination were: Lumbar Spine (L1-L4): There has been improvement of bone density since the previous examination. Left Femur Total: which represents an improvement of 5.2%. Right Femur Total: which represents an improvement of 0.9%. BD/Dexa Bone Density Study IMPRESSION: The patient is considered osteopenic as outlined below according to World Samuel Organization (WHO) criteria with a high fracture risk. There has been improvement of bone density since the previous examination. Reference Information: The T-score is the number of standard deviations above or below the standard which is normal for young adults at their peak bone mineral density. The World Health Organization (WHO) interprets the T-scores as follows: Above -1 Normal bone density Between -1 and -2.5 Osteopenia Equal to / or below -2.5 Osteoporosis As a practical clinical guideline, osteopenia may be graded as follows: Mild -1 through -1.5 Moderate -1.6 through -2.0 Severe -2.1 through -2.4 The Z-score is the number of standard deviations above or below age-matched controls. A Z-score of less than -1.5 would be considered abnormal. References: 1. NIH Osteoporosis and Related Bone Diseases www osteo.org 2. International Society for Clinical Densitometry www iscd.org 3. National Osteoporosis Foundation www nof.org Electronically Signed: Raza Stephens MD at 9:11 EDT ,
[2023-12-25 10:21] LABS: Vitamin B12 695 pg/mL (211-911)
[2023-12-25 10:35] LABS: Cholesterol 234 mg/dL (200); High Density Lipoprotein 104 mg/dL; Triglycerides 36 mg/dL; Very Low Density Lipoprotein 7 mg/dL (5-40)
[2023-12-25 10:53] LABS: Microalbumin,Random Urine 6.8 mg/L (NO RANGE EST.); Microalbumin:Creatinine Ratio 5.3 mg/g CRE (<30 mg/g CRE)
[2023-12-25 10:58] LABS: Hemoglobin A1c 6.1 % (3.8-5.6)
[2023-12-25 11:00] LABS: PTHIN 75.1 pg/mL (18.4-80.1)
== END | disposition home or self-care (01) ==
PROVIDERS: Referring Provider Internal Medicine Endocrinology, Diabetes & Metabolism; Visit Provider Internal Medicine Endocrinology, Diabetes & Metabolism
DX: M81.0 Age-related osteoporosis without current pathological fracture (principal); E10.65 Type 1 diabetes mellitus with hyperglycemia; E03.9 Hypothyroidism, unspecified; Z79.899 Other long term (current) drug therapy
CPT/HCPCS: 36415; 77080; 80061; 82043; 82570; 82607; 83036; 83970

== ENCOUNTER → 2024-08-13 | Outpatient (CLI) | payer MEDICARE, OTHER, SELFPAY ==
[2024-08-13 12:00] LABS: ALB/GLOB Ratio 0.9 RATIO (0.9-2.4); AST(SGOT) 26 U/L (<=31); Alanine Aminotransfer ALT/SGPT 15 U/L (<=34); Albumin, Serum 3.7 g/dL (3.4-4.8); Alkaline Phosphatase 55 U/L (35-104); Anion Gap 13 (5-15); BUN 17 mg/dL (4-19); BUN/Creat Ratio 19.3 RATIO (10-20); Calcium,Total 9.8 mg/dL (7.6-11.0); Carbon Dioxide 24.5 mmol/L (21.0-32.0); Chloride 100 mmol/L (98-108); Creatinine, Serum 0.89 mg/dL (0.70-1.20); EST Glomerular Filtration Rate 69 (>60); Globulin 4.1 g/dL (2.2-4.2); Glucose 105 mg/dL (70-99); Potassium 4.1 mmol/L (3.3-5.1); Protein, Total 7.8 g/dL (5.9-8.4); Sodium Level 137 mmol/L (133-145); Total Bilirubin 0.74 mg/dL (0.00-1.30)
[2024-08-13 12:01] LABS: PTHIN 37 pg/mL (11-61)
== END | disposition home or self-care (01) ==
PROVIDERS: Referring Provider Internal Medicine Endocrinology, Diabetes & Metabolism; Visit Provider Internal Medicine Endocrinology, Diabetes & Metabolism
DX: E11.65 Type 2 diabetes mellitus with hyperglycemia (principal); M81.0 Age-related osteoporosis without current pathological fracture; Z79.899 Other long term (current) drug therapy
CPT/HCPCS: 36415; 80053; 82306; 83036; 83970; 84439; 84443

== ENCOUNTER 2024-09-08 07:30 | Outpatient (RCR) | payer MEDICARE, OTHER, SELFPAY ==
--- NOTE | 2024-08-13 08:52 | HP.PTEVAL_ITS ---
Patient's Visit Information Visit Information Visit Information: KULWINDER KAPLAN is a 68 year old F referred to Physical Therapy by Dr. Silver Espinal DO with a diagnosis of L knee OA. Date of Evaluation: 08/13/24 Physical Therapist: JT Beckham Visit Plan Frequency: 2x /Week Duration: 2 Months Plan: 2X/ week for 8 weeks for L knee AROM, L knee and hip strength with indep HEP and gym routine to take to gym of choice. Feel bike would be good for the patient as she does get increase swelling after being on her feet with stiffness. HEP: bridges, SLR, S/L hip abd, QS Subjective Subjective: Pt has bone on bone on her L knee. She is having pain with walking on bad days and night pain and wakes her up and she can not turn her knee. G etting out of the car she has to stand there for a little bit to get mobility in order to get going. On good days she has pain when she sits for too long. She has a knee brace and is able to stand 6 hours but pretty tired after standing that long and then she will sit and then it will be hard to stand back up. Ice and heat do help. She takes Aspirin for the pain. She takes Volterin as needed. She does not want a knee replacement and she is not a candidate for gel injections. She has not had a cortisone shots. Pain L knee pain: Pain Intensity (Out of 10): 0 Comment: sit to stand 2 Objective Objective: Gait: Walks with shorter stride and decrease hip extension Knee AROM: R 0 ext and 132 knee flexion L-12 from full extension, 125 knee flexion LE MMT: R hip flex 15.7 and L 16.8 R knee ext 27 and L 24.6 R knee flex 16.1 and L 13.3 R hip abd 16.2, and L 20.5 Balance/Special Test Scores Lower Extremity Functional Score: 63 Goals Goal 1:: I HEP Goal Time Frame: 6-8 Weeks Goal 2:: Increase L knee AROM (ynes ext...at the time of the eval: R 0 ext and 132 knee flexion L-12 from full extension, 125 knee flexion) Goal Time Frame: 6-8 Weeks Goal 3:: Increase LE MMT: (at the time of the eval: LE MMT: R hip flex 15.7 and L 16.8 R knee ext 27 and L 24.6 R knee flex 16.1 and L 13.3 R hip abd 16.2, and L 20.5). Goal Time Frame: 6-8 Weeks Rehabilitation Potential Rehabilitation Potential: Good Anticipated Interventions Patient/Client Instruction: Educate patient on: Condition and Plan of Care For the Purpose of:: To decrease pain, To decrease swelling/inflammation, To increase ROM, To improve nutrient delivery to tissue, To improve muscle performance and motor function, To improve ability to perform ADL's, To increase tolerance to activity/condition/position, To improve performance and independence with ADL's, To improve gait and locomotor functions, To improve health of tissue, To decrease soft tissue restriction and To increase flexibility/ROM Therapeutic Exercise to Include: Strength training, Endurance training, Flexibilty training, Gait and locomotor training, Passive ROM, Active ROM and Dynamic Lumbar Stabilization For the Purpose of:: To decrease pain, To increase ROM, To improve nutrient delivery to tissue, To improve muscle performance and motor function, To improve ability to perform ADL's, To improve gait and locomotor functions, To improve health of tissue, To decrease soft tissue restriction and To increase flexibility/ROM Functional Training to Include: Gait training For the Purpose of:: To improve gait and locomotor functions Manual Therapy Techniques to Include: Passive ROM and Soft tissue mobilization For the Purpose of:: To decrease pain, To increase ROM, To improve nutrient delivery to tissue and To improve muscle performance and motor function Text: Thank you for the opportunity to evaluate your patient. For Medicare and Medicare HMO plans, please review the plan of care and approve it. It will need to be FAXED BACK to us at [phone] for Medicare purposes. For Medicare only, by signing this I certify the plan of care. Please let me know if there are questions or concerns regarding this plan of care. Physician Signature: Date:
--- NOTE | 2024-09-08 08:26 | HP.PTDCSUM ---
Discharge Summary D/C summary: It has been my pleasure to treat KULWINDER KAPLAN referred by Dr. Silver Espinal DO, with the diagnosis of L knee OA for a total of 10 visit(s). Discharge Date: 09/08/24 Please see the following information for a summary of their discharge status. Subjective Subjective: Still has morning stiffness and when gets up after sitting for awhile. Pain L knee pain: Pain Intensity (Out of 10): 1 Overall Improvement % Improvement: 30 Objective Objective/Function: Strength: R hip flex 15.7 and L 16.8 R knee ext 27 and L 25.6 R knee flex 16.1 and L 15.3 R hip abd 16.2, and L 20.5). Range of Motion R 0 ext and 132 knee flexion L-2 from full extension, 132 knee flexion Goals Goal 1:: I HEP Goal Progress: Goal Met Goal 2:: Increase L knee AROM (ynes ext...at the time of the eval: R 0 ext and 132 knee flexion L-12 from full extension, 125 knee flexion) Goal Progress: Goal Met Goal 3:: Increase LE MMT: (at the time of the eval: LE MMT: R hip flex 15.7 and L 16.8 R knee ext 27 and L 24.6 R knee flex 16.1 and L 13.3 R hip abd 16.2, and L 20.5). Goal Progress: Goal Met Plan Plan: DC PT D/C Information Discharge Comments: DC PT to indep gym exercises d/c sentence: If there are questions or concerns regarding this patient's physical therapy, please feel free to call me at [phone]. Thank you for the referral of this patient. Sincerely, Whit Castanon, MPT Balance/Gait/Functional tests Balance/Special Test Scores Lower Extremity Functional Score: 60 Improvement % Improvement: 30
== END 2024-09-08 11:31 | disposition home or self-care (01) ==
LOC: PT 07:30
PROVIDERS: Referring Provider Student in an Organized Health Care Education/Training Program; Visit Provider Student in an Organized Health Care Education/Training Program
DX: M17.12 Unilateral primary osteoarthritis, left knee (principal); M25.562 Pain in left knee
CPT/HCPCS: 97110; 97161

== ENCOUNTER → 2024-11-25 | Outpatient (CLI) | payer MEDICARE, OTHER, SELFPAY ==
--- OUTSIDE RECORDS SUMMARY | 2024-11-25 07:28 | XMS RPT_ITS | CCD ---
Author Organization [facility]ini[facility]n Care Team Providers Care Rolling Machine Operator Name Role Phone Eb, Khushboo A Unavailable EmRafael green Unavailable Unavailable Howard Adrienne Unavailable Unavailable Unavailable Unavailable Care Physician, No Primary Primary Care Provider Unavailable Tosin SCHULTE, Dr. Sherman Attending Provider [phone] Dr. Whit Leahy MD Referring Provider Dr. Silver Espinal DO Attending Provider Teddy DOUGHERTY, Dr. Sheppard Referring Provider [phone] Dr. Silver Espinal DO Attending Provider Teddy DOUGHERTY, Dr. Sheppard Referring Provider Care Physician, No Primary Primary Care Unava ilWhit Bright Attending Unavailable Whit Leahy Referring Unavailable Care Physician, No Primary Primary Care Unava ilable Silver Espinal Attending Unavailable Silver Espinal Referring Unavailable Care Physician, No Primary Primary Care Unava ilable Whit Leahy Attending Unavailable Whit Leahy Referring Unavailable Medications Current Medications Medication Drug Class(es) Dates Sig (Normalized) Sig (Original) doxycycline monohydrate 100 mg oral capsule (8 sources) Tetracycline-clas s Drug Start: 09-07-2019 take 1 capsule by mouth twice daily Doxycycline Monohydrate 100 mg capsule Active 100 mg PO TWICE A DAY September 07, 2019 12:00am Insulin Basal Pump (Pt's Own) (Pump, Basal) 1 UNIT Pump (8 sources) Start: 11-04-2017 Insulin Basal Pump (Pt's Own) (Pump, Basal) 1 UNIT Pump Active 0.25 UNIT SC DIRECTED November 04, 2017 8:45am bolus prn meals Start: 11-04-2017 Insulin Basal Pump (Pt's Own) (Pump, Basal) 1 UNIT Pump Active 0.25 U SC DIRECTED November 04, 2017 12:00am bolus prn meals Start: 11-04-2017 Insulin Basal Pump (Pt's Own) (Pump, Basal) 1 UNIT Pump Active 0.25 UNIT SC DIRECTED November 04, 2017 12:00am bolus prn meals levothyroxine sodium 0.088 mg oral tablet (12 sources) l-Thyroxine Start: 11-04-2017 take 1 tablet by mouth once daily Levothyroxine 88 MCG tablet Active 88 ug PO DAILY November 04, 2017 12:00am take 1 tablet by mouth once shira y LEVOTHYROXINE SODIUM, 50MCG (Oral Capsule) 1 tab daily (50 MCG) Active take 1 tablet by mouth once shira y LEVOTHYROXINE SODIUM, 50MCG (Oral Capsule) 1 tab daily (50 MCG) Active Completed/Discontinued Medications Medication Drug Class(es) Dates Sig (Normalized) Sig (Original) amoxicillin 875 mg / clavulanate 125 mg oral tablet (4 sources) Penicillin-class Antibacterial Start: 01-22-2015 take 1 tablet by mouth twice daily AMOXICILLIN-POT CLAVULANATE, 875-125MG (Oral Tablet) 1 (one) Tablet bid for 0 days Quantity: 28 {Tablet} Refills: 0 Ordered: 22-Jan-2015 Fast DO, Khushboo A Fast DO, Khushboo A Start : 22-Jan-2015 Active Ascorbic Acid / Beta Carotene / cuprous oxide / Lutein / sodium selenate / Vitamin E / Zinc Oxide (4 sources) Vitamin C take 1 capsule by mouth once daily OCUVITE ADULT 50+ (Oral Capsule) 1 cap daily Active aspirin 325 mg oral tablet (4 sources) Platelet Aggregation Inhibitor, Nonsteroidal Anti-inflammatory Drug take 2 tablets by mouth once daily ASPIRIN, 325MG (Oral Tablet) 2 tab daily (325 MG) Active atorvastatin 10 mg oral tablet (4 sources) HMG-CoA Reductase Inhibitor take 1 tablet by mouth every week ATORVASTATIN CALCIUM, 10MG (Oral Tablet) 1 tab 4 days weekly (10 MG) Active cholecalciferol 0.025 mg oral capsule (4 sources) Vitamin D Start: 07-22-2014 take 1 capsule by mouth three times weekly VITAMIN D3, 1000UNIT (Oral Capsule) 1 (one) Capsule Capsule 3 times a week for 30 days Quantity: 12 {Capsule} Refills: 0 Ordered: 22-Sep-2014 Fast DO, Khushboo A Fast DO, Khushboo A Start : 22-Jul-2014 Active cinnamon bark 500 mg oral capsule (4 sources) Start: 01-22-2015 take 2 capsules by mouth once daily CINNAMON, 500MG (Oral Capsule) 2 (two) Capsule qd for 30 days Quantity: 30 {Capsule} Refills: 0 Ordered: 22-Jan-2015 Fast DO, Khushboo A Fast DO, Khushboo A Start : 22-Jan-2015 Active Insulin (8 sources) Start: 09-07-2019 End: 09-07-2019 INSULIN Discontinued Not Applicable September 07, 2019 8:19am September 07, 2019 8:21am Start: 09-07-2019 End: 09-07-2019 INSULIN Discontinued Not Marie licable September 07, 2019 12:00am September 07, 2019 8:21am 3 ml insulin detemir 100 unt/ml pen injector (4 sources) Insulin Analog Start: 07-22-2014 End: 08-21-2014 LEVEMIR FLEXTOUCH, 100UNIT/ML (Subcutaneous Solution Pen-injector) 8 Soln Pen-inj units q hs for 30 days Quantity: 1 {Pre-filled_Pen_Syringe} Refills: 0 Ordered: 22-Sep-2014 Fast DO, Khushboo A Fast DO, Khushboo A Start : 22-Jul-2014 End : 21-Aug-2014 Inactive 3 ml insulin lispro 100 unt/ml cartridge (4 sources) Insulin Analog Start: 01-22-2015 End: 02-21-2015 HUMALOG, 100UNIT/ML (Subcutaneous Solution Cartridge) 1 (one) Soln Cartridge in cartridge for 30 days Quantity: 30 {Cartridge} Refills: 0 Ordered: 22-Feb-2015 Fast DO, Khushboo A Fast DO, Khushboo A Start : 22-Jan-2015 End : 21-Feb-2015 Inactive Insulin Pump (4 sources) Insulin Pump Act ishan insulin aspart, human 100 unt/ml injectable solution (4 sources) Insulin Analog Start: 07-20-2014 End: 08-19-2014 NOVOLOG FLEXPEN, 100UNIT/ML (Subcutaneous Solution) uad Soln Pen-inj in insulin pump for 30 days Quantity: 1 {Pre-filled_Pen_Syringe} Refills: 0 Ordered: 22-Sep-2014 Fast DO, Khushboo A Fast DO, Khushboo A Start : 20-Jul-2014 End : 19-Aug-2014 Inactive lisinopril 2.5 mg oral tablet (4 sources) Angiotensin Converting Enzyme Inhibitor Start: 01-22-2015 take 1 tablet by mouth once daily LISINOPRIL, 2.5MG (Oral Tablet) 1 (one) Tablet qd for 0 days Quantity: 30 {Tablet} Refills: 3 Ordered: 22-Jan-2015 Fast DO, Khushboo A Fast DO, Khushboo A Start : 22-Jan-2015 Active METANX, 3-90.314-2-35MG (Oral Capsule) (4 sources) take 1 tablet by mouth twice daily METANX, 3-90.314-2-35MG (Oral Capsule) 1 tab bid (3-90.314-2-35 MG) Active Multivitamin preparation (4 sources) take 1 tablet by mouth once daily MULTIVITAMIN (PO Tab) 1 (one) daily Active Tumeric (4 sources) Tumeric 500mg 1 tab daily Active Problems Active Problems Problem Classification Problem Date Documented Da te Episodic/Chronic Diabetes mellitus with complications (1 source) Type 2 diabetes mellitus with hyperglycemia; Translations: [Type 2 diabetes mellitus with hyperglycemia] Onset: 08-20-2024 Chronic Diabetes mellitus without complication (4 sources) Type 1 diabetes mellitus; Translations: [Uncontrolled type I diabetes mellitus] 04-21-2015 Chronic Comment on above: sees Dr Denia calderon ne- diagnosed age 57- Diabetes mellitus without complication (8 sources) Diabetes mellitus without complication Disorders of lipid metabolism (12 sources) Hyperlipidemia; Translations: [Hyperlipidemia] 02-11-2015 Chronic Immunizations and screening for infectious disease (5 sources) Need for prophylactic vaccination and inoculation against influenza; Translations: [Needs influenza immunization] 02-11-2015 Episodic Neoplasms of unspecified nature or uncertain behavior (4 sources) Neoplasm of uncertain behavior of skin; Translations: [Neoplasm of uncertain behavior of skin] 02-11-2015 Episodic Comment on above: cryo x1 left leg 45 sec Nutritional deficiencies (4 sources) Cobalamin deficiency; Translations: [Deficiency of vitamin B12] 02-11-2015 Episodic Osteoporosis (1 source) Age-related osteoporosis without current pathological fracture; Translations: [Age-related osteoporosis without current pathological fracture] Onset: 01-26-2024 Chronic Other circulatory disease (4 sources) Abnormal chest sounds; Translations: [Abnormal lung sounds] 02-11-2015 Episodic Other screening for suspected conditions (not mental disorders or infectious disease) (12 sources) CT of abdomen abnormal; Translations: [Thyroid hormone tests abnormal] 02-11-2015 Episodic Comment on above: right adenexal densi ty seeing endo on meds Other skin disorders (8 sources) Other seborrheic keratosis; Translations: [Senile hyperkeratosis] 02-11-2015 Episodic Comment on above: monitor left leg at followup Other upper respiratory infections (8 sources) Chronic sinusitis; Translations: [Chronic Sinusitis (Renamed from Chronic infection of sinus)] 02-11-2015 Chronic Ovarian cyst (4 sources) Cyst of ovary; Translations: [Cyst of ovary, unspecified laterality] 02-12-2015 Episodic Comment on above: recheck us in july Residual codes; unclassified (4 sources) Obstructive sleep apnea syndrome Chronic Residual codes; unclassified (4 sources) Obstructive sleep apnea of adult; Translations: [Obstructive sleep apnea, adult] 02-11-2015 Chronic Comment on above: using mouth matt and this working Residual codes; unclassified (3 sources) Needs influenza immunization; Translations: [Need for prophylactic vaccination and inoculation against influenza (Renamed from Need for immunization against influenza)] 02-11-2015 Episodic Sprains and strains (8 sources) Strain of flexor muscle of hip; Translations: [Strain of muscle, fascia and tendon of right hip, initial encounter] 11-05-2017 Episodic Unclassified (8 sources) Deficiency of vitamin B12 Unclassified (20 sources) Unclassified (4 sources) Ovarian Cyst, Unspecified (620.2) Past or Other Problems Problem Classification Problem Date Documented Da te Episodic/Chronic Unclassified (4 sources) Lesion-Unknown behavior (238.2) Unclassified (4 sources) Abnormal Lung Sounds/Rales (786.7) Unclassified (4 sources) High serum methylmalonic acid Unclassified (4 sources) Abnormal TSH (794.5) Unclassified (8 sources) Unspecified Diagnosis 02-11-2015 Unclassified (4 sources) Abnormal CT of Abdomen(794.9) Unclassified (4 sources) Pregnancies (); Translations: [Pregnancies ()] 02-11-2015 Comment on above: 0. Unclassified (7 sources) HISTORY OF BROKEN LEG 08-01-2022 Results Test Name Value Interpretation Reference Range Facility PT D/C Summary (1)on 025 PT D/C Summary (1) [facility] [address] [place] [address] / REHABILITATION SERVICES DISCHARGE SUMMARY MR#: [id number] Acct: [id number] Name: KULWINDER KAPLAN Rep #: [id number] : 1955 68 From: Whit WATERS Referring Dr.: Dr. Silver Espinal DO Status: REG RCR Insurance: MEDICARE PART A B [facility] Discharge Summary D/C summary: It has been my pleasure to treat KULWINDER KAPLAN referred by Dr. Silver Espinal DO, with the diagnosis of L knee OA for a total of 10 visit(s). Discharge Date: 09/08/24 Please see the following information for a summary of their discharge status. Subjective Subjective: Still has morning stiffness and when gets up after sitting for awhile. Pain L knee pain: Pain Intensity (Out of 10): 1 Overall Improvement % Improvement: 30 Objective Objective/Function: Strength: R hip flex 15.7 and L 16.8 R knee ext 27 and L 25.6 R knee flex 16.1 and L 15.3 R hip abd 16.2, and L 20.5). Range of Motion R 0 ext and 132 knee flexion L-2 from full extension, 132 knee flexion Goals Goal 1:: I HEP Goal Progress: Goal Met Goal 2:: Increase L knee AROM (ynes ext...at the time of the eval: R 0 ext and 132 knee flexion L-12 from full extension, 125 knee flexion) Goal Progress: Goal Met Goal 3:: Increase LE MMT: (at the time of the eval: LE MMT: R hip flex 15.7 and L 16.8 R knee ext 27 and L 24.6 R knee flex 16.1 and L 13.3 R hip abd 16.2, and L 20.5). Goal Progress: Goal Met Plan Plan: DC PT D/C Information Discharge Comments: DC PT to indep gym exercises d/c sentence: If there are questions or concerns regarding this patient's physical therapy, please feel free to call me at [phone]. Thank you for the referral of this patient. Sincerely, Whit Castanon, JT Balance/Gait/Functi onal tests Balance/Special Test Scores Lower Extremity Functional Score: 60 Improvement % Improvement: 30 09/08/24 0826 CC: Dr. Silver Espinal, DO; No Primary Care Physician Signed Normal [facility] Anion gap in Serum or Plasma Ordered By: Whit Leahy on 08-13-2024 Anion gap [Moles/Vol] 13 mmol/L - [facility] BUN/creatinine ratioOrdered By: Whit Leahy on 08-13-2024 Urea nitrogen/Creatinine [Mass ratio] 19.3 mg/mg - [facility] Bilirubin, totalOrdered By: Whit Leahy on 08-13-2024 Bilirubin [Mass/Vol] 0.74 mg/dL Normal 0.00-1.30 [facility] Comment on above: Performed By: #### L 509.1000, L500.4100, L801.1541, L503.0105, L501.9985, L502.0250 #### [facility] Laboratory [address] [place], [address] Carbon dioxide, total [Moles /volume] in Central venous bloodOrdered By: Whit Leahy on 08-13-2024 CO2 [Moles/Vol] 24.5 mmol/L Normal 21.0-32.0 [facility] Comment on above: Performed By: #### L 509.1000, L500.4100, L801.1541, L503.0105, L501.9985, L502.0250 #### [facility] [address] [place], [address] Chloride assayOrdered By: Haydee Leahy on 08-13-2024 Chloride [Moles/Vol] 100 mmol/L Normal 98-108 [facility] Comment on above: Performed By: #### L 509.1000, L500.4100, L801.1541, L503.0105, L501.9985, L502.0250 #### [facility] [address] [place], [address] Comprehensive Metabolic Prof zo 08-13-2024 ALK PHOS 55 U/L Normal 35-104 [facility] Comment on above: Performed By: #### L 509.1000, L500.4100, L801.1541, L503.0105, L501.9985, L502.0250 #### [facility] [address] [place], [address] BUN/CRE 19.3 RATIO Normal 10-20 [facility] Comment on above: Performed By: #### L 509.1000, L500.4100, L801.1541, L503.0105, L501.9985, L502.0250 #### [facility] [address] [place], [address] GAP 13 Normal 5-15 [facility] Comment on above: Performed By: #### L 509.1000, L500.4100, L801.1541, L503.0105, L501.9985, L502.0250 #### [facility] [address] [place], [address] Potassium [Moles/Vol] 4.1 mmol/L Normal 3.3-5.1 [facility] Comment on above: Performed By: #### L 509.1000, L500.4100, L801.1541, L503.0105, L501.9985, L502.0250 #### [facility] [address] [place], [address] T PROT 7.8 g/dL Normal 5.9-8.4 [facility] Comment on above: Performed By: #### L 509.1000, L500.4100, L801.1541, L503.0105, L501.9985, L502.0250 #### [facility] [address] [place], [address] Comprehensive Metabolic Prof ilOrdered By: Whit Leahy on 08-13-2024 AST [Catalytic activity/Vol] 26 U/L Normal <=31 [facility] Comment on above: Performed By: #### L 509.1000, L500.4100, L801.1541, L503.0105, L501.9985, L502.0250 #### [facility] [address] [place], [address] Glomerular filtration rate ( GFR) estimation/1.73 sq m using serum, plasma, or whole bOrdered By: Whit Leahy on 08-13-2024 GFR/1.73 sq M.predicted among non-blacks MDRD (S/P/Bld) [Vol rate/Area] 69 mL/min/{1.73_m2} Normal >60 [facility] Comment on above: mL/min/1.73m2 CKD-EP I Creatinine Equation (2020) Result Comment: mL/m in/1.73m2 CKD-EPI Creatinine Equation (2020) Performed By: #### L 509.1000, L500.4100, L801.1541, L503.0105, L501.9985, L502.0250 #### [facility] [address] [place], [address] Hemoglobin A1con 08-13-2024 HbA1c (Bld) [Mass fraction] 6.0 % High <=5.6 [facility] Comment on above: Result Comment: Norm al < 5.7 % Prediabetic 5.7 - 6.4 % Diabetic >or= 6.5 % Please note range changes. Performed By: #### L 501.9520, L509.1000, L500.4050, L506.1001, L501.9985, L506.0400 #### [facility] [address] [place], [address] Hemoglobin A1c percentageOrd ered By: Whit Leahy on 08-13-2024 HbA1c (Bld) [Mass fraction] 6.0 % High <5.7 [facility] Comment on above: Normal < 5.7 % Predi abetic 5.7 - 6.4 % Diabetic >or= 6.5 % Please note range changes. Inital Evaluation (1) - PTon 08-13-2024 Inital Evaluation (1) - PT [facility] [address] [place] [address] / REHABILITATION SERVICES INITIAL EVALUATION MR#: [id number] Acct: [id number] Name: KULWINDER KAPLAN Rep #: [id number] : 1955 68 From: Whit WATERS Referring Dr.: Dr. Silver Espinal DO Status: REG RCR Insurance: MEDICARE PART A B [facility] Patient's Visit Information Visit Information Visit Information: KULWINDER KAPLAN is a 68 year old F referred to Physical Therapy by Dr. Silver Espinal DO with a diagnosis of L knee OA. Date of Evaluation: 08/13/24 Physical Therapist: JT Beckham Visit Plan Frequency: 2x /Week Duration: 2 Months Plan: 2X/ week for 8 weeks for L knee AROM, L knee and hip strength with indep HEP and gym routine to take to gym of choice. Feel bike would be good for the patient as she does get increase swelling after being on her feet with stiffness. HEP: bridges, SLR, S/L hip abd, QS Subjective Subjective: Pt has bone on bone on her L knee. She is having pain with walking on bad days and night pain and wakes her up and she can not turn her knee. Getting out of the car she has to stand there for a little bit to get mobility in order to get going. On good days she has pain when she sits for too long. She has a knee brace and is able to stand 6 hours but pretty tired after standing that long and then she will sit and then it will be hard to stand back up. Ice and heat do help. She takes Aspirin for the pain. She takes Volterin as needed. She does not want a knee replacement and she is not a candidate for gel injections. She has not had a cortisone shots. Pain L knee pain: Pain Intensity (Out of 10): 0 Comment: sit to stand 2 Objective Objective: Gait: Walks with shorter stride and decrease hip extension Knee AROM: R 0 ext and 132 knee flexion L-12 from full extension, 125 knee flexion LE MMT: R hip flex 15.7 and L 16.8 R knee ext 27 and L 24.6 R knee flex 16.1 and L 13.3 R hip abd 16.2, and L 20.5 Balance/Special Test Scores Lower Extremity Functional Score: 63 Goals Goal 1:: I HEP Goal Time Frame: 6-8 Weeks Goal 2:: Increase L knee AROM (ynes ext...at the time of the eval: R 0 ext and 132 knee flexion L-12 from full extension, 125 knee flexion) Goal Time Frame: 6-8 Weeks Goal 3:: Increase LE MMT: (at the time of the eval: LE MMT: R hip flex 15.7 and L 16.8 R knee ext 27 and L 24.6 R knee flex 16.1 and L 13.3 R hip abd 16.2, and L 20.5). Goal Time Frame: 6-8 Weeks Rehabilitation Potential Rehabilitation Potential: Good Anticipated Interventions Patient/Client Instruction: Educate patient on: Condition and Plan of Care For the Purpose of:: To decrease pain, To decrease swelling/inflammati on, To increase ROM, To improve nutrient delivery to tissue, To improve muscle performance and motor function, To improve ability to perform ADL's, To increase tolerance to activity/condition/ position, To improve performance and independence with ADL's, To improve gait and locomotor functions, To improve health of tissue, To decrease soft tissue restriction and To increase flexibility/ROM Therapeutic Exercise to Include: Strength training, Endurance training, Flexibilty training, Gait and locomotor training, Passive ROM, Active ROM and Dynamic Lumbar Stabilization For the Purpose of:: To decrease pain, To increase ROM, To improve nutrient delivery to tissue, To improve muscle performance and motor function, To improve ability to perform ADL's, To improve gait and locomotor functions, To improve health of tissue, To decrease soft tissue restriction and To increase flexibility/ROM Functional Training to Include: Gait training For the Purpose of:: To improve gait and locomotor functions Manual Therapy Techniques to Include: Passive ROM and Soft tissue mobilization For the Purpose of:: To decrease pain, To increase ROM, To improve nutrient delivery to tissue and To improve muscle performance and motor function Text: Thank you for the opportunity to evaluate your patient. For Medicare and Medicare HMO plans, please review the plan of care and approve it. It will need to be FAXED BACK to us at [phone] for Medicare purposes. For Medicare only, by signing this I certify the plan of care. Please let me know if there are questions or concerns regarding this plan of care. Physician Signature: __Date: 08/13/24 0852 CC: Dr. Silver Espinal, DO; No Primary Care Physician Signed Normal [facility] PTHINon 08-13-2024 PTH 37 pg/mL Normal [facility] Comment on above: Performed By: #### L 509.1000, L500.4100, L801.1541, L503.0105, L501.9985, L502.0250 #### [facility] [address] [place], [address] Potassium measurement (mass/ volume)Ordered By: Whit Leahy on 08-13-2024 Potassium (Unsp spec) [Mass/Vol] 4.1 mmol/L 3.3-5.1 [facility] Serum creatinine measurement (mass/volume)Ordered By: Whit Leahy on 08-13-2024 Creatinine [Mass/Vol] 0.89 mg/dL Normal 0.70-1.20 [facility] Comment on above: Performed By: #### L 509.1000, L500.4100, L801.1541, L503.0105, L501.9985, L502.0250 #### [facility] [address] [place], [address] Serum globulin measurementOr dered By: Whit Leahy on 08-13-2024 Globulin (S) [Mass/Vol] 4.1 g/dL Normal 2.2-4.2 [facility] Comment on above: Performed By: #### L 509.1000, L500.4100, L801.1541, L503.0105, L501.9985, L502.0250 #### [facility] [address], [place], [id number] (670) Serum glucose measurement (m ass/volume)Ordered By: Whit Leahy on 08-13-2024 Glucose [Mass/Vol] 105 mg/dL High 70-99 [facility] Comment on above: Performed By: #### L 509.1000, L500.4100, L801.1541, L503.0105, L501.9985, L502.0250 #### [facility] [address], [place], [id number] ([phone]) Serum or plasma alanine irwin otransferase (ALT) measurementOrdered By: Whit Leahy on 08-13-2024 ALT [Catalytic activity/Vol] 15 U/L Normal <=34 [facility] Comment on above: Performed By: #### L 509.1000, L500.4100, L801.1541, L503.0105, L501.9985, L502.0250 #### [facility] [address] [place], [address] Serum or plasma albumin theresa urement (mass/volume)Ordered By: Whit Leahy on 08-13-2024 Albumin [Mass/Vol] 3.7 g/dL Normal 3.4-4.8 [facility] Comment on above: Performed By: #### L 509.1000, L500.4100, L801.1541, L503.0105, L501.9985, L502.0250 #### [facility] [address] [place], [address] Serum or plasma albumin/glob ulin mass ratioOrdered By: Whit Leahy on 08-13-2024 Albumin/Globulin [Mass ratio] 0.9 {ratio} Normal 0.9-2.4 [facility] Comment on above: Performed By: #### L 509.1000, L500.4100, L801.1541, L503.0105, L501.9985, L502.0250 #### [facility] [address] [place], [address] Serum or plasma alkaline luis sphatase measurementOrdered By: Whit Leahy on 08-13-2024 ALP [Catalytic activity/Vol] 55 U/L 35-104 [facility] Serum or plasma calcium theresa urement (mass/volume)Ordered By: Whit Leahy on 08-13-2024 Calcium [Mass/Vol] 9.8 mg/dL Normal 7.6-11.0 [facility] Comment on above: Performed By: #### L 509.1000, L500.4100, L801.1541, L503.0105, L501.9985, L502.0250 #### [facility] [address] [place], [address] Serum or plasma urea nitroge n measurement (mass/volume)Ordered By: Whit Leahy on 08-13-2024 Urea nitrogen [Mass/Vol] 17 mg/dL Normal 4-19 [facility] Comment on above: Performed By: #### L 509.1000, L500.4100, L801.1541, L503.0105, L501.9985, L502.0250 #### [facility] Laboratory [address] [place], [address] Sodium levelOrdered By: Kia Mack on 08-13-2024 Sodium [Moles/Vol] 137 mmol/L Normal 133-145 [facility] Comment on above: Performed By: #### L 509.1000, L500.4100, L801.1541, L503.0105, L501.9985, L502.0250 #### [facility] Laboratory [address] [place], [place], [id number] T4 Free Directon 08-13-2024 T4 FREE DIRECT 1.80 ng/dL High 0.76-1.46 [facility] Comment on above: Performed By: #### L 509.1000, L500.4100, L801.1541, L503.0105, L501.9985, L502.0250 #### [facility] Laboratory [address] [place], [address] T4 freeOrdered By: Whit black on 08-13-2024 Free T4 [Mass/Vol] 1.80 ng/dL High 0.76-1.46 [facility] TSH DL <= 0.005 mIU/L QnOrde red By: Whit Leahy on 08-13-2024 TSH Qn 0.700 uIU/mL 0.300-4.200 [facility] Thyroid Stim Hormone (TSH)on 08-13-2024 TSH 0.700 uIU/mL Normal 0.300-4.200 [facility] Comment on above: Performed By: #### L 509.1000, L500.4100, L801.1541, L503.0105, L501.9985, L502.0250 #### [facility] Laboratory [address] [place], [place], [id number] Total proteinOrdered By: Cuong Leahy on 08-13-2024 Protein [Mass/Vol] 7.8 g/dL 5.9-8.4 [facility] Vitamin D,25 Hydroxyon 08-13 Vitamin D 25-OH 112.0 ng/mL High 30-100 [facility] Comment on above: Result Comment: Sharyn min D Status Deficiency: <20 ng/mL (50nmol/L) Insufficiency: 20-30 ng/mL (50-75 nmol/L) Sufficiency: 30-100 ng/mL (75-250 nmol/L) Toxicity: >100 ng/mL (>250 nmol/L) Performed By: #### L 509.1000, L500.4100, L801.1541, L503.0105, L501.9985, L502.0250 #### [facility] Laboratory [address] [place], [address] Miscellaneous Lab Procedureo n 01-07-2024 [facility] TEST Normal [facility] Comment on above: Order Comment: [id number] CTELOPEPTIDE SERUM FZ [id number] CTELOPEPTIDE SERUM FZ Result Comment: TEST RESULTS LIMITS C-Telopeptide, Serum 99 pg/mL Reference Range: Premenopausal Women: 34 - 635 Postmenopausal Women: 34 - 1037 TESTING PERFORMED AT [facility]. ORIGINAL REPORT ON FILE IN LAB CONTAINS ADDITIONAL TEST SITE INFORMATION. Performed By: #### L 509.1000, L500.4100, L801.1541, L503.0105, L501.9985, L502.0250 #### [facility] Laboratory [address], [address] Dexa Bone Density Studyon Dexa Bone Density Study [facility] [address] [place], [place] [address] Dexa Bone Density Study MR#: [id number] Acct: [id number] Name: KULWINDER KAPLAN SANDY Rep #: [id number] : 1955 F 68 From: Raza hawkins MD PCP: Care Physician,No Primary Status: JAY CLI Study: Dexa Bone Density Study Date of Exam: 12/25/23 Exam# [id number] Ordering Dr: Whit Leahy MD -[id number] STUDY: DUAL ENERGY X-RAY ABSORPTIOMETRY / DXA REASON FOR EXAM: Female, 68 years old. M810 TECHNIQUE: Bone Mineral Density (BMD) measurements of lumbar spine and bilateral hips as well as a left forearm were obtained. COMPARISON: Comparison is made with prior study December 13, 2021. FINDINGS: Lumbar Spine (L1-L4): g/cm2 (0.751) / T-score (-2.4) / Z-score (-0.4) Findings are suggestive of osteopenia with a high fracture risk. Left Femur Total: g/cm2 (0.704) / T-score (-2.0) / Z-score (-0.5) Left Femoral Neck: g/cm2 (0.590) / T-score (-2.3) / Z-score (-0.5) Right Femur Total: g/cm2 (0.710) / T-score (-1.9) / Z-score (-0.4) Right Femoral Neck: g/cm2 (0.599) / T-score (-2.3) / Z-score (-0.5) Left Forearm: g/cm2 (0.486) / T-score (-1.7) / Z-score (0.3) The T-Scores on the most recent prior examination were: Lumbar Spine (L1-L4): There has been improvement of bone density since the previous examination. Left Femur Total: which represents an improvement of 5.2%. Right Femur Total: which represents an improvement of 0.9%. BD/Dexa Bone Density Study IMPRESSION: The patient is considered osteopenic as outlined below according to World Samuel Organization (WHO) criteria with a high fracture risk. There has been improvement of bone density since the previous examination. Reference Information: The T-score is the number of standard deviations above or below the standard which is normal for young adults at their peak bone mineral density. The World Health Organization (WHO) interprets the T-scores as follows: Above -1 Normal bone density Between -1 and -2.5 Osteopenia Equal to / or below -2.5 Osteoporosis As a practical clinical guideline, osteopenia may be graded as follows: Mild -1 through -1.5 Moderate -1.6 through -2.0 Severe -2.1 through -2.4 The Z-score is the number of standard deviations above or below age-matched controls. A Z-score of less than -1.5 would be considered abnormal. References: 1. NIH Osteoporosis and Related Bone Diseases www osteo.org 2. International Society for Clinical Densitometry www iscd.org 3. National Osteoporosis Foundation www nof.org Electronically Signed: Raza Stephens MD at 9:11 EDT Reading Location ID and State: [address] [place] [address] , Service support , CC: Dr. Whit Leahy MD; No Primary Care Physician 4 H Youth Development Specialist: Signed Normal [facility] Hemoglobin A1con 12-25-2023 HbA1c (Bld) [Mass fraction] 6.1 % High 3.8-5.6 [facility] Comment on above: Result Comment: Norm al < 5.7 % Prediabetic 5.7 - 6.4 % Diabetic >or= 6.5 % Please note range changes. Performed By: #### L 509.1000, L500.4100, L801.1541, L503.0105, L501.9985, L502.0250 #### [facility] Laboratory [address] [place], [address] Lipid Profileon 12-25-2023 Cholesterol [Mass/Vol] 234 mg/dL High 200 [facility] Comment on above: Result Comment: <200 mg/dL Desirable 200-240 mg/dL Borderline >240 mg/dL High Risk Performed By: #### L 509.1000, L500.4100, L801.1541, L503.0105, L501.9985, L502.0250 #### [facility] [address] [place], [address] Cholesterol in HDL [Mass/Vol] 104 mg/dL Normal [facility] Comment on above: Result Comment: The drugs N-Acetylcysteine and Metamizole may falsely depress this assay. Reference Range HDL <40 mg/dL Low HDL Cholesterol HDL >or= 60 mg/dL High HDL Cholesterol Performed By: #### L 509.1000, L500.4100, L801.1541, L503.0105, L501.9985, L502.0250 #### [facility] [address] [place], [address] Cholesterol in LDL [Mass/Vol] 123 mg/dL Normal 0-130 [facility] Comment on above: Performed By: #### L 509.1000, L500.4100, L801.1541, L503.0105, L501.9985, L502.0250 #### [facility] [address] [place], [address] Cholesterol in VLDL [Mass/Vol] 7 mg/dL Normal 5-40 [facility] Comment on above: Performed By: #### L 509.1000, L500.4100, L801.1541, L503.0105, L501.9985, L502.0250 #### [facility] [address] [place], [address] Triglyceride [Mass/Vol] 36 mg/dL Normal [facility] Comment on above: Result Comment: The drugs N-Acetylcysteine and Metamizole may falsely depress this assay. Serum Triglycerides Reference Interval Normal <150 mg/dL Borderline high 150 - 199 mg/dL High 200 - 499 mg/dL Very High > or = 500 mg/dL Performed By: #### L 509.1000, L500.4100, L801.1541, L503.0105, L501.9985, L502.0250 #### [facility] [address] [place], [address] Microalb:Creat Ratio,Random URon 12-25-2023 Creatinine [Mass/Vol] 127.00 mg/dL Normal NO RANGE EST . [facility] Comment on above: Performed By: #### L 509.1000, L500.4100, L801.1541, L503.0105, L501.9985, L502.0250 #### [facility] [address] [place], [address] MALB:CRE 5.3 mg/g CRE Normal <30 mg/g CRE [facility] Comment on above: Performed By: #### L 509.1000, L500.4100, L801.1541, L503.0105, L501.9985, L502.0250 #### [facility] [address] [place], [address] MICROALBUMIN,UR 6.8 mg/L Normal NO RANGE EST. [facility] Comment on above: Performed By: #### L 509.1000, L500.4100, L801.1541, L503.0105, L501.9985, L502.0250 #### [facility] [address] [place], [address] PTHINon 12-25-2023 PTH 75.1 pg/mL Normal 18.4-80.1 [facility] Comment on above: Performed By: #### L 509.1000, L500.4100, L801.1541, L503.0105, L501.9985, L502.0250 #### [facility] [address] [place], [address] Vitamin B12on 12-25-2023 Cobalamin (Vitamin B12) [Mass/Vol] 695 pg/mL Normal 211-911 [facility] Comment on above: Performed By: #### L 509.1000, L500.4100, L801.1541, L503.0105, L501.9985, L502.0250 #### [facility] [address] [place], [address] Basophil percentageOrdered B y: Whit Leahy on 10-26-2022 Chloride [Moles/Vol] 106 mmol/L 98-107 [facility] Cholesterol [Mass/Vol] 208 mg/dL <200 [facility] [place] Comment on above: <200 mg/dL Desirable 200-240 mg/dL Borderline >240 mg/dL High Risk Glucose [Mass/Vol] 103 mg/dL 74-106 [facility] Comment on above: Fasting Glucose resu lt from 100 to 125 mg/dL suggests IMPAIRED HOMEOSTASIS per A.D.A. criteria. Potassium [Moles/Vol] 4.1 mmol/L 3.5-5.1 [facility] Sodium [Moles/Vol] 140 mmol/L 136-145 [facility] Triglyceride [Mass/Vol] 57 mg/dL <199 [facility] Comment on above: The drugs N-Acetylcy steine and Metamizole may falsely depress this assay.Serum Triglycerides Reference Interval Normal <150 mg/dL Borderline high 150 - 199 mg/dL High 200 - 499 mg/dL Very High > or = 500 mg/dL Laboratory - Chemistry and C hemistry - challengeOrdered By: Whit Leahy on 10-26-2022 CO2 [Moles/Vol] 29.0 mmol/L 21.0-32.0 [facility] Urea nitrogen/Creatinine [Mass ratio] 19.3 mg/mg 10-20 [facility] No Panel InformationOrdered By: Whit Leahy on 10-26-2022 Estimated GFR (MDRD) Amer 82 mL/min >60 [facility] Comment on above: GFR Calc Estimated GFR (MDRD) Non-Af Amer 68 mL/min >60 [facility] Comment on above: Non- GFR Calc Parathyroid Hormone (Intact) 69.9 pg/mL 18.4-80.1 [facility] Thyroid Stimulating Hormone (TSH) 2.26 uIU/mL 0.358-3.74 [facility] Urine Microalbumin/Creatinine Ratio 6.6 mg/g CRE <30 [facility] Vitamin D 25-Hydroxy 47.5 ng/mL [facility] Comment on above: Vitamin D 25(OH) Sta tus Range Deficiency <20 ng/mL (50nmol/L) Insufficiency 20 - 30 ng/mL (50 - 75 nmol/L) Sufficiency 30 - 100 ng/mL (75 - 250 nmol/L) Toxicity >100 ng/mL (>250 nmol/L) Serum or plasma calcium theresa urement (mass/volume)Ordered By: Whit Leahy on 10-26-2022 Calcium [Mass/Vol] 8.7 mg/dL 8.5-10.1 [facility] Serum or plasma cholesterol in HDL measurement (mass/volume)Ordered By: Whit Leahy on 10-26-2022 Cholesterol in HDL [Mass/Vol] 97 mg/dL >40 [facility] Comment on above: The drugs N-Acetylcy steine and Metamizole may falsely depress this assay. Reference Range HDL <40 mg/dL Low HDL Cholesterol HDL >or= 60 mg/dL High HDL Cholesterol Serum or plasma cholesterol in VLDL measurement (mass/volume)Ordered By: Whit Leahy on 10-26-2022 Cholesterol in VLDL [Mass/Vol] 11 mg/dL 5-40 [facility] Serum or plasma creatinine m easurement (mass/volume)Ordered By: Whit Leahy on 10-26-2022 Creatinine [Mass/Vol] 0.88 mg/dL 0.55-1.02 [facility] Comment on above: The validity of the calculated GFR & GFRAA in patients over 70 years has not been determined. Clinical correlation is essential. Serum or plasma low density lipoprotein (LDL) cholesterol measurement (mass/volume)Ordered By: Whit Leahy on 10-26-2022 Cholesterol in LDL [Mass/Vol] 100 mg/dL 0-130 [facility] Serum or plasma urea nitroge n measurement (mass/volume)Ordered By: Whit Leahy on 10-26-2022 Urea nitrogen [Mass/Vol] 17 mg/dL 7-18 [facility] Thin prep Papanicolaou smear with manual screeningOrdered By: Whit Leahy on 10-26-2022 Thin prep Papanicolaou smear with manual screening 5 5-15 [facility] Thin prep Papanicolaou smear with manual screening 6.6 mg/L NO RANGE EST. [facility] Urine creatinine measurement (mass/volume)Ordered By: Whit Leahy on 10-26-2022 Creatinine (U) [Mass/Vol] 100.00 mg/dL NO RANGE EST. [facility] Whole blood hemoglobin A1c/t otal hemoglobin ratio (mass fraction)Ordered By: Whit Leahy on 10-26-2022 HbA1c (Bld) [Mass fraction] 6.1 % 3.8-5.6 [facility] Comment on above: Normal < 5.7 % Predi abetic 5.7 - 6.4 % Diabetic >or= 6.5 % Please note range changes. Basophil percentageOrdered B y: Whit Leahy on 10-04-2022 Glucose [Mass/Vol] 117 mg/dL 74-106 [facility] Comment on above: Fasting Glucose resu lt from 100 to 125 mg/dL suggests IMPAIRED HOMEOSTASIS per A.D.A. criteria. No Panel InformationOrdered By: Whit Leahy on 10-04-2022 C-Peptide < 0.1 ng/mL 1.1-4.4 [facility] Comment on above: C-Peptide reference interval is for fasting patients.Performed at: [facility] [id number] Director: Patrice Huddleston PhD, Phone: [phone] Basophil percentageOrdered B y: Dr. Leahy on 07-28-2022 Bilirubin [Mass/Vol] 0.90 mg/dL 0.20-1.00 [facility] Comment on above: For patients on eltr ombopag therapy, use of Dimension [place] TBIL is not recommended. Chloride [Moles/Vol] 102 mmol/L 98-107 [facility] Glucose [Mass/Vol] 107 mg/dL 74-106 [facility] Comment on above: Fasting Glucose resu lt from 100 to 125 mg/dL suggests IMPAIRED HOMEOSTASIS per A.D.A. criteria. Potassium [Moles/Vol] 3.7 mmol/L 3.5-5.1 [facility] Protein [Mass/Vol] 7.9 g/dL 6.4-8.2 [facility] Sodium [Moles/Vol] 138 mmol/L 136-145 [facility] Laboratory - Chemistry and C hemistry - challengeOrdered By: Dr. Leahy on 07-28-2022 ALP [Catalytic activity/Vol] 52 U/L 45-117 [facility] ALT [Catalytic activity/Vol] 30 U/L 13-56 [facility] CO2 [Moles/Vol] 27.0 mmol/L 21.0-32.0 [facility] Cobalamin (Vitamin B12) [Mass/Vol] 1486 pg/mL 211-911 [facility] Free T4 [Mass/Vol] 1.49 ng/dL 0.76-1.46 [facility] Globulin (S) [Mass/Vol] 4.1 g/dL 2.2-4.2 [facility] Urea nitrogen/Creatinine [Mass ratio] 22.2 mg/mg 10-20 [facility] No Panel InformationOrdered By: Dr. Leahy on 07-28-2022 Estimated GFR (MDRD) Amer 76 mL/min >60 [facility] Comment on above: GFR Calc Estimated GFR (MDRD) Non-Af Amer 62 mL/min >60 [facility] Comment on above: Non- GFR Calc Parathyroid Hormone (Intact) 64.8 pg/mL 18.4-80.1 [facility] Thyroid Stimulating Hormone (TSH) 0.88 uIU/mL 0.358-3.74 [facility] Vitamin D 25-Hydroxy 55.6 ng/mL [facility] Comment on above: Vitamin D 25(OH) Sta tus Range Deficiency <20 ng/mL (50nmol/L) Insufficiency 20 - 30 ng/mL (50 - 75 nmol/L) Sufficiency 30 - 100 ng/mL (75 - 250 nmol/L) Toxicity >100 ng/mL (>250 nmol/L) No Panel InformationOrdered By: Whit Leahy on 07-28-2022 Miscellaneous Test See comment [facility] Comment on above: TEST RESULT LIMITSC- Telopeptide, Serum 130 pg/mL Reference Range: Premenopausal Women: 34 - 635 Postmenopausal Women: 34 - 1037 TESTING PERFORMED AT [facility]. ORIGINAL REPORT ON FILE IN LAB CONTAINS ADDITIONAL TEST SITE INFORMATION. Serum or plasma albumin theresa urement (mass/volume)Ordered By: Dr. Leahy on 07-28-2022 Albumin [Mass/Vol] 3.8 g/dL 3.2-5.0 [facility] Serum or plasma albumin/glob ulin mass ratioOrdered By: Dr. Leahy on 07-28-2022 Albumin/Globulin [Mass ratio] 0.9 {ratio} 0.9-2.4 [facility] Serum or plasma calcium theresa urement (mass/volume)Ordered By: Dr. Leahy on 07-28-2022 Calcium [Mass/Vol] 8.9 mg/dL 8.5-10.1 [facility] Serum or plasma creatinine m easurement (mass/volume)Ordered By: Dr. Leahy on 07-28-2022 Creatinine [Mass/Vol] 0.94 mg/dL 0.55-1.02 [facility] Comment on above: The validity of the calculated GFR & GFRAA in patients over 70 years has not been determined. Clinical correlation is essential. Serum or plasma urea nitroge n measurement (mass/volume)Ordered By: Dr. Leahy on 07-28-2022 Urea nitrogen [Mass/Vol] 21 mg/dL 7-18 [facility] Thin prep Papanicolaou smear with manual screeningOrdered By: Dr. Leahy on 07-28-2022 Thin prep Papanicolaou smear with manual screening 28 U/L 15-37 [facility] Thin prep Papanicolaou smear with manual screening 9 5-15 [facility] Whole blood hemoglobin A1c/t otal hemoglobin ratio (mass fraction)Ordered By: Dr. Leahy on 07-28-2022 HbA1c (Bld) [Mass fraction] 5.9 % 3.8-5.6 [facility] Comment on above: Normal < 5.7 % Predi abetic 5.7 - 6.4 % Diabetic >or= 6.5 % Please note range changes. Basophil percentageon 2021 Chloride [Moles/Vol] 102 mmol/L 98-107 [facility] Work Phone: Cholesterol [Mass/Vol] 221 mg/dL <200 [facility] Work Phone: Comment on above: <200 mg/dL Desirable 200-240 mg/dL Borderline >240 mg/dL High Risk Glucose [Mass/Vol] 173 mg/dL 74-106 [facility] Work Phone: Comment on above: Fasting Glucose resu lt greater than or equal to 126 mg/dL suggests DIABETES MELLITUS per A.D.A. criteria. Potassium [Moles/Vol] 4.3 mmol/L 3.5-5.1 [facility] Work Phone: Sodium [Moles/Vol] 135 mmol/L 136-145 [facility] Work Phone: Triglyceride [Mass/Vol] 80 mg/dL <199 [facility] Work Phone: Comment on above: The drugs N-Acetylcy steine and Metamizole may falsely depress this assay.Serum Triglycerides Reference Interval Normal <150 mg/dL Borderline high 150 - 199 mg/dL High 200 - 499 mg/dL Very High > or = 500 mg/dL Laboratory - Chemistry and C hemistry - challengeon 11-03-2021 CO2 [Moles/Vol] 28.0 mmol/L 21.0-32.0 [facility] Work Phone: Cobalamin (Vitamin B12) [Mass/Vol] 545 pg/mL 211-911 [facility] Work Phone: Free T4 [Mass/Vol] 1.42 ng/dL 0.76-1.46 [facility] Work Phone: Urea nitrogen/Creatinine [Mass ratio] 12.5 mg/mg 10-20 [facility] Work Phone: No Panel Informationon 11-03 Estimated GFR (MDRD) Amer 68 mL/min >60 [facility] Work Phone: Comment on above: GFR Calc Estimated GFR (MDRD) Non-Af Amer 56 mL/min >60 [facility] Work Phone: Comment on above: Non- GFR Calc Thyroid Stimulating Hormone (TSH) 1.43 uIU/mL 0.358-3.74 [facility] Work Phone: Urine Microalbumin/Creatinine Ratio TNP [facility] Work Phone: Comment on above: Test not performed Serum or plasma calcium theresa urement (mass/volume)on 11-03-2021 Calcium [Mass/Vol] 8.6 mg/dL 8.5-10.1 [facility] Work Phone: Serum or plasma cholesterol in HDL measurement (mass/volume)on 11-03-2021 Cholesterol in HDL [Mass/Vol] 79 mg/dL >40 [facility] Work Phone: Comment on above: The drugs N-Acetylcy steine and Metamizole may falsely depress this assay. Reference Range HDL <40 mg/dL Low HDL Cholesterol HDL >or= 60 mg/dL High HDL Cholesterol Serum or plasma cholesterol in VLDL measurement (mass/volume)on 11-03-2021 Cholesterol in VLDL [Mass/Vol] 16 mg/dL 5-40 [facility] Work Phone: Serum or plasma creatinine m easurement (mass/volume)on 11-03-2021 Creatinine [Mass/Vol] 1.04 mg/dL 0.55-1.02 [facility] Work Phone: Comment on above: The validity of the calculated GFR & GFRAA in patients over 70 years has not been determined. Clinical correlation is essential. Serum or plasma low density lipoprotein (LDL) cholesterol measurement (mass/volume)on 11-03-2021 Cholesterol in LDL [Mass/Vol] 126 mg/dL 0-130 [facility] Work Phone: Serum or plasma urea nitroge n measurement (mass/volume)on 11-03-2021 Urea nitrogen [Mass/Vol] 13 mg/dL 7-18 [facility] Work Phone: Thin prep Papanicolaou smear with manual screeningon 11-03-2021 Thin prep Papanicolaou smear with manual screening 5 5-15 [facility] Work Phone: Thin prep Papanicolaou smear with manual screening < 5.0 mg/L NO RANGE EST. [facility] Work Phone: Urine creatinine measurement (mass/volume)on 11-03-2021 Creatinine (U) [Mass/Vol] 79.30 mg/dL NO RANGE EST. [facility] Work Phone: Whole blood hemoglobin A1c/t otal hemoglobin ratio (mass fraction)on 11-03-2021 HbA1c (Bld) [Mass fraction] 6.5 % 3.8-5.6 [facility] Work Phone: Comment on above: Normal < 5.7 % Predi abetic 5.7 - 6.4 % Diabetic >or= 6.5 % Please note range changes. 24 hour urine calcium measur ement (mass/time)on 08-03-2021 Calcium (24H U) [Mass/Time] 153.4 mg/24 HR 42.0-353.0 [facility] Work Phone: 24 hour urine specimen volum e measurementon 08-03-2021 Specimen volume (24H U) 2.6 L [facility] Work Phone: Basophil percentageon 2021 Bilirubin [Mass/Vol] 0.80 mg/dL 0.20-1.00 [facility] Work Phone: Comment on above: For patients on eltr ombopag therapy, use of Dim[place] TBIL is not recommended. Chloride [Moles/Vol] 103 mmol/L 98-107 [facility] Work Phone: Glucose [Mass/Vol] 177 mg/dL 74-106 [facility] Work Phone: Comment on above: Fasting Glucose resu lt greater than or equal to 126 mg/dL suggests DIABETES MELLITUS per A.D.A. criteria. Potassium [Moles/Vol] 4.0 mmol/L 3.5-5.1 [facility] Work Phone: Protein [Mass/Vol] 7.1 g/dL 6.4-8.2 [facility] Work Phone: Sodium [Moles/Vol] 133 mmol/L 136-145 [facility] Work Phone: Laboratory - Chemistry and C hemistry - challengeon 08-03-2021 ALP [Catalytic activity/Vol] 42 U/L 45-117 [facility] Work Phone: ALT [Catalytic activity/Vol] 30 U/L 13-56 [facility] Work Phone: CO2 [Moles/Vol] 22.0 mmol/L 21.0-32.0 [facility] Work Phone: Globulin (S) [Mass/Vol] 3.5 g/dL 2.2-4.2 [facility] Work Phone: pH (U) 2 [pH] [facility] Work Phone: Urea nitrogen/Creatinine [Mass ratio] 22.7 mg/mg 10-20 [facility] Work Phone: Laboratory - Specimen inform ationon 08-03-2021 Collection time (Abelino) [Date/time] 24.0 HR 24.0-24.0 [facility] Work Phone: No Panel Informationon 08-03 Estimated GFR (MDRD) Amer 82 mL/min >60 [facility] Work Phone: Comment on above: GFR Calc Estimated GFR (MDRD) Non-Af Amer 68 mL/min >60 [facility] Work Phone: Comment on above: Non- GFR Calc Miscellaneous Test See comment [facility] Work Phone: Comment on above: TEST RESULT UNITS RE F INTERVALCreatinine, 24-Hour UrineCreatinine, Urine 39.3 mg/dL Not Estab.Creatinine, Ur 24hr 1022 mg/24 hr 800-1800 ___ TESTING PERFORMED AT [facility]. ORIGINAL REPORT ON FILE IN LAB CONTAINS ADDITIONAL TEST SITE INFORMATION. Parathyroid Hormone (Intact) 61.9 pg/mL 18.4-80.1 [facility] Work Phone: Urine Calcium 5.9 Not Estab. [facility] Work Phone: Vitamin D 25-Hydroxy 51.6 ng/mL [facility] Work Phone: Comment on above: Vitamin D 25(OH) Sta tus Range Deficiency <20 ng/mL (50nmol/L) Insufficiency 20 - 30 ng/mL (50 - 75 nmol/L) Sufficiency 30 - 100 ng/mL (75 - 250 nmol/L) Toxicity >100 ng/mL (>250 nmol/L) Serum or plasma albumin theresa urement (mass/volume)on 08-03-2021 Albumin [Mass/Vol] 3.6 g/dL 3.2-5.0 [facility] Work Phone: Serum or plasma albumin/glob ulin mass ratioon 08-03-2021 Albumin/Globulin [Mass ratio] 1.0 {ratio} 0.9-2.4 [facility] Work Phone: Serum or plasma calcium theresa urement (mass/volume)on 08-03-2021 Calcium [Mass/Vol] 8.6 mg/dL 8.5-10.1 [facility] Work Phone: Serum or plasma creatinine m easurement (mass/volume)on 08-03-2021 Creatinine [Mass/Vol] 0.88 mg/dL 0.55-1.02 [facility] Work Phone: Comment on above: The validity of the calculated GFR & GFRAA in patients over 70 years has not been determined. Clinical correlation is essential. Serum or plasma urea nitroge n measurement (mass/volume)on 08-03-2021 Urea nitrogen [Mass/Vol] 20 mg/dL 7-18 [facility] Work Phone: Thin prep Papanicolaou smear with manual screeningon 08-03-2021 Thin prep Papanicolaou smear with manual screening 27 U/L 15-37 [facility] Work Phone: Thin prep Papanicolaou smear with manual screening 8 5-15 [facility] Work Phone: Whole blood hemoglobin A1c/t otal hemoglobin ratio (mass fraction)on 08-03-2021 HbA1c (Bld) [Mass fraction] 6.0 % 3.8-5.6 [facility] Work Phone: Comment on above: Normal < 5.7 % Predi abetic 5.7 - 6.4 % Diabetic >or= 6.5 % Please note range changes. Vital Signs Date Time Vital Sign Value Performing Clinician Facility 01-22-2015 07:170400 BMI (Body Mass Index) 24.97 kg/m2 [facility] Work Phone: 01-22-2015 07:170400 Body Temperature 98.2 [degF] [facility] Work Phone: Comment on above: Method: Tympanic 01-22-2015 07:170400 Body weight 61.92 kg [facility] Work Phone: 01-22-2015 07:170400 BP Diastolic 64 mm[Hg] [facility] Work Phone: Comment on above: Patient Position: Sitting; Cuff Location : Left Arm; Cuff Size: Standard 01-22-2015 07:170400 BP Systolic 122 mm[Hg] [facility] Work Phone: Comment on above: Patient Position: Sitting; Cuff Location : Left Arm; Cuff Size: Standard 01-22-2015 07:17-0400 BSA (Body Surface Area) 1.63 m2 [facility] Work Phone: 01-22-2015 07:17-0400 Height 157.48 cm Carmen Wright [facility] Work Phone: 01-22-2015 07:17-0400 Pulse (Heart Rate) 108 /min Carmen Wright [facility] Work Phone: Comment on above: Pattern: Regular 01-22-2015 07:17-0400 Pulse Oximetry 98 % Khushboo Eb [facility] Work Phone: Comment on above: Room air 01-22-2015 07:17-0400 Respiratory Rate 18 /min Carmen Wright [facility] Work Phone: Comment on above: Pattern: Unlabored 01-22-2015 07:17-0400 SaO2% (BldA) [Mass fraction] 98 % Carmen Wright [facility]; [facility] Work Phone: Comment on above: Room air 09-22-2014 08:56-0400 BMI (Body Mass Index) 24.87 kg/m2 Enid Wilsonlm [facility] Work Phone: 09-22-2014 08:56-0400 Body Temperature 97.3 [degF] Enid Brady [facility] Work Phone: Comment on above: Method: Oral 09-22-2014 08:56-0400 Body weight 61.69 kg Enid Flinlm [facility] Work Phone: 09-22-2014 08:56-0400 BP Diastolic 70 mm[Hg] Eniddoug Wilsonlm [facility] Work Phone: Comment on above: Patient Position: Sitting; Cuff Location : Left Arm; Cuff Size: Standard 09-22-2014 08:56-0400 BP Systolic 110 mm[Hg] Enid Wilsonlm [facility] Work Phone: Comment on above: Patient Position: Sitting; Cuff Location : Left Arm; Cuff Size: Standard 09-22-2014 08:56-0400 BSA (Body Surface Area) 1.62 m2 Enid Flshelly [facility] Work Phone: 09-22-2014 08:56-0400 Height 157.48 cm Enid Brady [facility] Work Phone: 09-22-2014 08:56-0400 Pulse (Heart Rate) 84 /min [facility] Work Phone: Comment on above: Pattern: Regular 09-22-2014 08:56-0400 Respiratory Rate 16 /min Enid Brady [facility] Work Phone: Comment on above: Pattern: Unlabored 07-20-2014 14:35-0400 BMI (Body Mass Index) 23.96 kg/m2 Enid Brady [facility] Work Phone: 07-20-2014 14:35-0400 Body Temperature 95.9 [degF] Enid Brady [facility] Work Phone: Comment on above: Method: Oral 07-20-2014 14:35-0400 Body weight 59.42 kg Enid Brady [facility] Work Phone: 07-20-2014 14:35-0400 BP Diastolic 58 mm[Hg] Enid Brady [facility] Work Phone: Comment on above: Patient Position: Sitting; Cuff Location : Left Arm; Cuff Size: Standard 07-20-2014 14:35-0400 BP Systolic 94 mm[Hg] Enid Brady [facility] Work Phone: Comment on above: Patient Position: Sitting; Cuff Location : Left Arm; Cuff Size: Standard 07-20-2014 14:35-0400 BSA (Body Surface Area) 1.6 m2 Enid Brady [facility] Work Phone: 07-20-2014 14:35-0400 Height 157.48 cm Enid Brady [facility] Work Phone: 07-20-2014 14:35-0400 Pulse (Heart Rate) 60 /min Enid Brady [facility] Work Phone: Comment on above: Pattern: Regular 07-20-2014 14:35-0400 Respiratory Rate 16 /min Enid Jose Antonio [facility] Work Phone: Comment on above: Pattern: Unlabored Encounters Encounter Date Encounter Type Care Provider Facility Start: 09-08-2024 End: 09-08-2024 ambulatory No Primary Care Physician [facility] Work Phone: Start: 09-08-2024 End: 09-08-[address] Silver Espinal DO -Physical Therapy Work Phone: Start: 08-20-[address] Tu Espinal DO -Physical Therapy Work Phone: Start: 08-13-2024 End: 08-13-2024 ambulatory No Primary Care Physician [facility] Work Phone: Start: 08-13-2024 End: 08-13-[address] Whit Leahy MD -[facility] [place] Work Phone: Start: 08-13-2024 End: 08-13-2024 ambulatory No Primary Care Physician Facility:[facility] Start: 12-25-2023 End: 12-25-2023 ambulatory No Primary Care Physician Facility:[facility] Start: 10-26-2022 End: 10-26-2022 ambulatory [facility] Work Phone: Start: 10-26-2022 End: 10-26-2022 Patient encounter procedure [facility] Work Phone: Start: 10-04-2022 End: 10-04-2022 ambulatory [facility] Work Phone: Start: 10-04-2022 End: 10-04-2022 Patient encounter procedure [facility] Work Phone: Start: 07-28-2022 End: 07-28-2022 ambulatory [facility] Work Phone: Start: 07-28-2022 End: 07-28-2022 [facility] Start: 11-03-2021 End: 11-03-2021 [facility] Start: 10-21-2021 End: 10-21-2021 Patient encounter [facility] Start: 08-03-2021 End: 08-03-2021 Patient encounter procedure [facility] Start: 02-11-2015 End: 02-11-2015 Office outpatient visit 40 minutes Khushboo Parson [facility] Start: 01-22-2015 End: 01-22-2015 Office outpatient visit 25 minutes Khushboo Parson [facility] Start: 09-22-2014 End: 09-22-2014 Office outpatient visit 10 minutes Khushboo Parson [facility] Start: 07-22-2014 End: 07-22-2014 Historical Summary [facility] Start: 07-20-2014 End: 07-20-2014 Office outpatient visit 25 minutes Khushboo Parson [facility] Procedures Date Procedure Procedure Detail Performing Clinician Start: 08-13-2024 Parathyroid hormone measurement No Primary Care Physician Start: 08-13-2024 Vitamin D, 25-hydrox y measurement No Primary Care Physician Comment on above: Vitamin D StatusDefi ciency: <20 ng/mL (50nmol/L)Insufficiency: 20-30 ng/mL (50-75 nmol/L)Sufficiency: 30-100 ng/mL (75-250 nmol/L)Toxicity: >100 ng/mL (>250 nmol/L) Start: 10-21-2021 Radiologic examinati on of knee Start: 07-30-2014 End: 07-30-2014 Pelvic (Non ) Comments: See Note; NOTES: [facility] Imaging Services [address] [place] [address] Ultrasound Report MR#: [id number] Acct: [id number] Name: KULWINDER KAPLAN Rep #: [id number] : 1955 F 58 From: Raza Stephens MD PCP: Khushboo Parson DO Status: REG CLI Study: Pelvic (Non ) Date of Exam: 07/30/14 Exam# [id number] Ordering Dr: Khushboo Parson DO STUDY: ULTRASOUND OF THE FEMALE PELVIS - COMPLETE REASON FOR EXAM: Female, 58 years old. LMP: The patient is postmenopausal. TECHNIQUE: Transabdominal TECHNICAL QUALITY: Adequate. COMPARISON: None. FINDINGS: The uterus is retroverted and is in a midline position. The uterus measures 5.1 cm x 3.5 cm x 2.0 cm. Normal uterine cervix. The endometrium measures 2.3 mm in thickness, and is hyperechoic. There is no demonstrated endometrial mass. There is no demonstrated myometrial mass. I.U.D. - The patient does not have an I.U.D. The right ovary is visualized. The right ovary measures 3 cm x 2.8 cm x 2.8 cm. There is a 2.6 cm x 2.2 cm x 2.3 cm cyst in the right ovary. There is no visualized right adnexal mass or complex lesion. There is normal arterial and normal venous vascularity. The left ovary is visualized. The left ovary measures 1.9 cm x 1.5 cm x 1.1 cm. There is no left ovarian cyst or ovarian mass. There is no visualized left adnexal mass or complex lesion. There is normal arterial and normal venous vascularity. There is no fluid in the cul-de-sac. IMPRESSION: 2.6 cm x 2.2 cm x 2.3 cm cyst is seen in the right ovary. Followup is recommended. Electronically Signed: Raza Stephens MD at 9:50 EDT Tel [phone], Service support [phone], CC: Khushboo Parson DO [employer] Specialist: Signed Khushboo Parson Work Phone: Left Boken Leg Rafael Olvera Comment on above: Had to put her under to reset it Tonsillectomy Rafael Olvera Plan of Treatment Date Care Activity Detail Author Start: 07-28-2022 Procedure [facility] Start: 04-26-2015 Blood count complete auto&auto difrntl wbc CBC W/AUTO DIFF WBC (58215) [facility] Work Phone: Start: 04-26-2015 Comprehensive metabolic panel METABOLIC PANEL, COMPREHENSIVE (22086) [facility] Work Phone: Start: 04-26-2015 Lipid panel LIPID PANEL (44137) [facility] Work Phone: Start: 01-22-2015 Procedure Education Eprescribed prescriptions (G8553) [facility] Work Phone: Start: 01-22-2015 Cobalamin (Vitamin B12) [Mass/Vol] VITAMIN B-12 (CYANOCOBALAMIN) (33811) [facility] Work Phone: Start: 01-22-2015 Cyanocobalamin vitamin b-12 VITAMIN B-12 (CYANOCOBALAMIN) (55740) [facility]; [facility] Work Phone: Start: 01-22-2015 Comprehensive metabolic panel METABOLIC PANEL, COMPREHENSIVE (69049) [facility] Work Phone: [facility] Work Phone: [facility] Work Phone: Payers Date Payer Category Payer Self-pay [id number] 2018 Medicare [id number] 2013 Unknown [id number] Unknown Unknown [id number] Unknown [id number] Unknown [id number] Social History Date Type Detail Facility Caffeine Use Caffeine Use [facility] Work Phone: Comment on above: - retired no children Tobacco use: Tobacco use: [facility] Work Phone: Tobacco use: Tobacco use: [facility]; [facility] Work Phone: Start: 09-07-2019 Tobacco smoking status NHIS Unknown if ever smoked [facility] Start: 1955 Sex Assigned At Female [facility] Start: 09-07-2019 Tobacco smoking status NHIS Never smoked tobacco (finding) [facility] Discharge summary 09-08-2024 Note Date & Type Note Facility 09-08-2024 Discharge summary [facility] Discharge summary 09-08-2024 Note Date & Type Note Facility 09-08-2024 Discharge summary Note Date/Time September 08, 2024 11:31am [facility] Physical Therapy [facility] [address] [place] [address] / REHABILITATION SERVICES DISCHARGE SUMMARY MR#: [id number] Acct: [id number] Name: KULWINDER KAPLAN Rep #: [id number] : 1955 68 From: Whit Leal Referring Dr.: Dr. Silver Espinal DO Status : REG RCR Insurance: MEDICARE PART A B [facility] Discharge Summary D/C summary: It has been my pleasure to treat KULWINDER KAPLAN referred by Dr. Silver Espinal DO, with the diagnosis of L knee OA for a total of 10 visit(s). Discharge Date: 09/08/24 Please see the following information for a summary of their discharge status. Subjective Subjective: Still has morning stiffness and when gets up after sitting for awhile. Pain L knee pain: Pain Intensity (Out of 10): 1 Overall Improvement % Improvement: 30 Objective Objective/Function: Strength: R hip flex 15.7 and L 16.8 R knee ext 27 and L 25.6 R knee flex 16.1 and L 15.3 R hip abd 16.2, and L 20.5). Range of Motion R 0 ext and 132 knee flexion L-2 from full extension, 132 knee flexion Goals Goal 1:: I HEP Goal Progress: Goal Met Goal 2:: Increase L knee AROM (ynes ext...at the time of the eval: R 0 ext and 132 knee flexion L-12 from full extension, 125 knee flexion) Goal Progress: Goal Met Goal 3:: Increase LE MMT: (at the time of the eval: LE MMT: R hip flex 15.7 and L 16.8 R knee ext 27 and L 24.6 R knee flex 16.1 and L 13.3 R hip abd 16.2, and L 20.5). Goal Progress: Goal Met Plan Plan: DC PT D/C Information Discharge Comments: DC PT to indep gym exercises d/c sentence: If there are questions or concerns regarding this patient's physical therapy, please feel free to call me at [phone]. Thank you for the referral of thispatient. Sincerely, Whit Castanon, JT Balance/Gait/Functional tests Balance/Special Test Scores Lower Extremity Functional Score: 60 Improvement % Improvement: 30 <Electronically signed by Whit Castanon MPT> 09/08/24 0826 CC: Dr. Silver Espinal, DO; No Primary Care Physician ~ Signed [facility] Work Phone: Evaluation note Note Date & Type Note Facility Evaluation note No assessment information availa ble [facility] Work Phone: Instructions Note Date & Type Note Facility Instructions Name How to access health information online Indication:Uncontrolled type I diabetes mellitus Start: Instruction Type:Patient Education How to access health information online - Detail Indication:Uncontrolled type I diabetes mellitus Start: 5 Instruction Type:Patient Education Patient Instructions Indication:Uncontrolled type I diabetes mellitus Start: 5 Instruction Type:Provider Instructions for Treatment Patient Instructions Indication:Neoplasm of uncertain behavior of skin Start: 5 Instruction Type:Provider Instructions for Treatment How to access health information online - Detail Indication:Uncontrolled type I diabetes mellitus Start: 5 Instruction Type:Patient Education Patient Instructions Indication:Uncontrolled type I diabetes mellitus Start: 5 Instruction Type:Provider Instructions for Treatment How to access health information online Indication:Abnormal lung sounds Start: 5 Instruction Type:Patient Education How to access health information online - Detail Indication:Abnormal lung sounds Start: 5 Instruction Type:Patient Education Patient Instructions Indication:Abnormal lung sounds Start: 5 Instruction Type:Provider Instructions for Treatment [facility]; [facility] Work Phone: Reason for referral (narrative) Note Date & Type Note Facility Reason for referral (narrative) No reason for referral information available [facility] Work Phone: Family History No Family History Records FoundUnknown Family Member Name Dates Details Father Comments: age 90- ca d/cva Status:Active Mother Comments: age 88- de mentia Status:Active Unknown Family Member Name Dates Details Father Comments: age 90- ca d/cva Status:Active Mother Comments: age 88- de mentia Status:Active Instructions Name Dates Details How to access health informa tion online Indication:Uncontrolled type I diabetes mellitus Start:22-Jan-2015 Instruction Type:Patient Education How to access health informa tion online - Detail Indication:Uncontrolled type I diabetes mellitus Start:22-Jan-2015 Instruction Type:Patient Education Patient Instructions Indication:Uncontrolled type I diabetes mellitus Start:22-Jan-2015 Instruction Type:Provider Instructions for Treatment Patient Instructions Indication:Neoplasm of uncertain behavior of skin Start:22-Sep-2014 Instruction Type:Provider Instructions for Treatment How to access health informa tion online - Detail Indication:Uncontrolled type I diabetes mellitus Start:20-Jul-2014 Instruction Type:Patient Education Patient Instructions Indication:Uncontrolled type I diabetes mellitus Start:20-Jul-2014 Instruction Type:Provider Instructions for Treatment How to access health informa tion online Indication:Abnormal lung sounds Start:20-Jul-2014 Instruction Type:Patient Education How to access health informa tion online - Detail Indication:Abnormal lung sounds Start:20-Jul-2014 Instruction Type:Patient Education Patient Instructions Indication:Abnormal lung sounds Start:20-Jul-2014 Instruction Type:Provider Instructions for Treatment Chief Complaint and Reason for Visit Chief Complaint LABS AND 24 HR URINE - COPY PCP Chief Complaint LABS AND 24 HR URINE - COPY PCP LEFT KNEE PAIN Chief Complaint LABWORK Chief Complaint Admit Date L KNEE OA. RX HERE August 20, 2024 8:30a m Chief Complaint Admit Date L KNEE OA. 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 November 04 018 8:37am Advance Directive Response Recorded Date/ Time Advance Directives No May 02, 2013 3:45pm Summary Purpose Additional Source Comments Goals (unrecognized section and content) Goals may be documented in a n alternate sectionGoals may be documented in an alternate sectionGoals may be documented in an alternate sectionGoals may be documented in an alternate sectionGoals may be documented in an alternate sectionGoals may be documented in an alternate sectionGoals may be documented in an alternate sectionGoals may be documented in an alternate section Care Teams (unrecognized sec tion and content) Team Status: Active Member Role Status Dates Dr. Veena Starkey MD Family Provider Active Dr. Veena Starkey MD Primary Care Provider Active Team Status: Inactive Member Role Status Dates Dr. Veena Starkey MD Primary Care Provider Active Dr. Whit Leahy MD Attending Provider, Referring Pro vider Active Team Status: Inactive Member Role Status Dates Dr. Veena Starkey MD Primary Care Provider Active Dr. Whit Leahy MD Attending Provider Active Team Status: Active Member Role Status Dates No Primary Care Physician Primary Care Provider Active Team Status: Inactive Member Role Status Dates No Primary Care Physician Primary Care Provider Active Start: August 13, 2024 End: August 13, 2024 Dr. Whit Leahy MD Attending Provider Active S tart: August 13, 2024 End: August 13, 2024 Dr. Whit Leahy MD Referring Provider Active S tart: August 13, 2024 End: August 13, 2024 Team Status: Active Member Role Status Dates No Primary Care Physician Primary Care Provider Active Start: August 20, 2024 Dr. Silver Espinal DO Attending Provider Active Start: August 20, 2024 Dr. Silver Espinal DO Referring Provider Active Start: August 20, 2024 Team Status: Inactive Member Role Status Dates No Primary Care Physician Primary Care Provider Active Start: September 08, 2024 End: September 08, 2024 Dr. Silver Espinal DO Attending Provider Active Start: September 08, 2024 End: September 08, 2024 Dr. Silver Espinal DO Referring Provider Active Start: September 08, 2024 End: September 08, 2024 INFORMATION SOURCE (unrecogn ized section and content) DATE CREATED AUTHOR 09/09/2024 [facility] FOR RECORDS PERTAINING TO PATIENTS WHO ARE OR HAVE BEEN ENROLLED IN A CHEMICAL DEPENDENCY/SUBSTANCEABUSE PROGRAM, SOME INFORMATION MAY BE OMITTED. This clinical summary was aggregated from multiple sources. Caution should be exercised in using it in the provision of clinical care. This summary normalizes information from multiple sources, and as a consequence, information in this document may materially change the coding, format and clinical context of patient data. In addition, data may be omitted in some cases. CLINICAL DECISIONS SHOULD BE BASED ON THE PRIMARY CLINICAL RECORDS. [facility]. provides no warranty or guarantee of the accuracy or completeness of information in this document.
[2024-11-25 11:40] LABS: Creatinine, Urine (random) 61.10 mg/dL (28.00-217.00); Microalbumin,Random Urine < 12.0 mg/L (<20 mg/L)
[2024-11-25 11:44] LABS: PTHIN 40 pg/mL (11-61)
[2024-11-25 12:00] LABS: AST(SGOT) 25 U/L (<=31); Alanine Aminotransfer ALT/SGPT 16 U/L (<=34); Albumin, Serum 4.2 g/dL (3.4-4.8); Alkaline Phosphatase 51 U/L (35-104); Anion Gap 11 (5-15); BUN 25 mg/dL (4-19); BUN/Creat Ratio 26.9 RATIO (10-20); Calcium,Total 9.5 mg/dL (7.6-11.0); Carbon Dioxide 25.3 mmol/L (21.0-32.0); Chloride 102 mmol/L (98-108); Cholesterol 240 mg/dL (<=200); Globulin 3.1 g/dL (2.2-4.2); Glucose 92 mg/dL (70-99); Low Density Lipoprotein Calc. 135 mg/dL; Potassium 4.2 mmol/L (3.3-5.1); Triglycerides 48 mg/dL; Very Low Density Lipoprotein 10 mg/dL (5-40); Vitamin B12 1167 pg/mL (180-914); cholesterol:hdl ratio screen 2.52
[2024-11-28 10:08] LABS: VITAMIN B6 34.7 ug/L (3.4-65.2)
== END | disposition home or self-care (01) ==
PROVIDERS: Referring Provider Internal Medicine Endocrinology, Diabetes & Metabolism; Visit Provider Internal Medicine Endocrinology, Diabetes & Metabolism
DX: E10.65 Type 1 diabetes mellitus with hyperglycemia (principal); M81.0 Age-related osteoporosis without current pathological fracture; E03.9 Hypothyroidism, unspecified; Z79.899 Other long term (current) drug therapy
CPT/HCPCS: 36415; 80053; 80061; 82043; 82570; 82607; 83036; 83970; 84207; 84439; 84443